=== PATIENT | male | born 1975 | race Caucasian/White ===

== ENCOUNTER 2020-02-12 09:28 | Inpatient (IN) | payer OTHER, SELFPAY ==
[2020-02-12] VITALS (12 sets, daily range): BP systolic 109–132; BP diastolic 60–85; PULSE 115–140; RESP 16–37; TEMP 36.8–39.6; O2SAT 90–99; BMI 48.4
--- NOTE | ~2020-02-12 | XR_ITS ---
EXAMINATION: XR chest 1V portable INDICATION: History of congestive heart failure TECHNIQUE: Portable AP chest at 1510 hours COMPARISON: 11/09/2012 FINDINGS: The lungs are free of acute opacities. There is no pleural effusion or pneumothorax. The he art size is upper limits of normal for technique. IMPRESSION: 1. No acute cardiopulmonary abnormality. Reviewed, dictated and finalized at location A.
--- NOTE | ~2020-02-12 | XR_ITS ---
EXAMINATION: XR chest port-a-cath/central DATE: 02/14/2020 04:17 INDICATION: Central line placement. TECHNIQUE: A single frontal view of the chest was obtained. COMPARISON: Chest single view 02/12/2020, chest CT 03/17/2018 FINDINGS: There is mild atelectasis in left lower lung zone. No pleural effusion or pneumothorax. Car diomegaly is noted. Again seen is mediastinal lipomatosis. A right internal jugular central venous ca theter is seen with tip in the superior vena cava. IMPRESSION: 1. Central line tip in superior vena cava. 2. Mild atelectasis in left lower lung zone. 3. Cardiomegaly. Reviewed, dictated and finalized at location A.
--- NOTE | ~2020-02-12 | US_ITS ---
EXAMINATION: US renal BI DATE: 02/14/2020 09:04 INDICATION: Acute kidney injury. TECHNIQUE: Multiple ultrasound grayscale images of the kidneys were obtained. COMPARISON: CT abdomen and pelvis 08/16/2016 FINDINGS: The right kidney measures 14.3 x 6.2 x 6.2 cm. The left kidney measures 14.4 x 6.4 x 5.7 cm. The kidn eys demonstrate normal parenchymal echogenicity. There is no hydronephrosis. The bladder is decompres sed by a Delatorre catheter. Diffuse hepatic steatosis is noted. IMPRESSION: 1. Normal kidneys. No hydronephrosis. Reviewed, dictated and finalized at location A.
--- NOTE | ~2020-02-12 | US_ITS ---
EXAMINATION: US scrotum doppler DATE: 02/12/2020 10:29 INDICATION: Swelling and tenderness of the left scrotum TECHNIQUE: Testicular sonogram utilizing grayscale and Doppler COMPARISON: None. FINDINGS: The right testis measures 2.9 x 3.0 x 4.2 cm. The left testis measures 3.6 x 3.0 x 3.0 cm. There is a moderate to large sized complex left hydrocele with septation and echogenic material. Ther e is also swelling of the surrounding scrotum. There is normal vascular flow to both testes. The righ t epididymis is normal with normal vascular flow. The left epididymis is enlarged. There is no varico jeromy or hydrocele. IMPRESSION: 1. Moderate to large sized complex left hydrocele with septation and echogenic material and scrotal e sandra. Urologic evaluation is recommended. Reviewed, dictated and finalized at location A. IMPRESSION: 1. Moderate to large sized complex left hydrocele with septation and echogenic material and scrotal edema. Urologic evaluation is recommended.
--- NOTE | ~2020-02-12 | CT_ITS ---
EXAMINATION: CT abd pelvis lumbar wo con DATE: 02/14/2020 11:21 INDICATION: Scrotal cellulitis. TECHNIQUE: Computed tomography (CT) of the abdomen and pelvis and lumbar spine was performed without intravenous contrast. Automated exposure control and iterative reconstruction technique were employed . The dose-length product was 2407.53 mGy-cm. COMPARISON: CT abdomen and pelvis 08/16/2016 FINDINGS: CT ABDOMEN AND PELVIS: The visualized portions of the lung bases demonstrate mild atelectasis. There are trace pleural effus ions. The heart size is normal. There are coronary artery calcifications. No pericardial effusion. Th ere is bilateral gynecomastia. There is diffuse hepatic steatosis. The gallbladder, spleen, pancreas, adrenal glands, and kidneys are normal. There is no urolithiasis. The bladder is decompressed by a F oley catheter. There is no urolithiasis. There are no dilated loops of bowel. There is a diverticulum in the ascending colon. The appendix is normal. There are no pathologically enlarged lymph nodes. Th ere is no free intraperitoneal fluid. There is extensive edema in the scrotum and perineum. No soft t issue gas. CT LUMBAR SPINE: Bone alignment is normal. There is mild chronic anterior wedging of T11 and T12 vertebral bodies. Int ervertebral disc heights are normal. The following disc levels are specifically discussed: L1-L2: The disc does not extend beyond the endplate margin. There is mild bilateral facet joint osteo arthritis. There is no neural foraminal stenosis. There is no central canal stenosis. L2-L3: The disc does not extend beyond the endplate margin. There is mild right and moderate left fac et joint osteoarthritis. There is no neural foraminal stenosis. There is no central canal stenosis. L3-L4: The disc does not extend beyond the endplate margin. There is mild right and moderate left fac et joint osteoarthritis. There is no neural foraminal stenosis. There is no central canal stenosis. L4-L5: The disc is bulging. There is moderate bilateral facet joint osteoarthritis. There is mild katerin ateral neural foraminal stenosis. There is mild central canal stenosis. L5-S1: The disc is bulging. There is severe right and moderate left facet joint osteoarthritis. There is mild right and moderate left neural foraminal stenosis. There is mild central canal stenosis. IMPRESSION: 1. Extensive edema of the scrotum and perineum, consistent with cellulitis. No abscess. 2. Mild lumbar spondylosis. Reviewed, dictated and finalized at location A.
--- NOTE | 2020-02-12 09:55 | ED.GENADULT ---
HPI - General Adult General Chief complaint: Skin/Abscess/Foreign Body Stated complaint: BOIL IN GROIN Time Seen by Provider: 02/12/20 09:34 History of Present Illness HPI narrative: Patient presents with his for sore swollen scrotum. Started 3 days ago with a boil on the left side of his upper scrotum. He has had chills no fever. He has had nausea but no vomiting. The pain is 10 out of 10, worse with any movement. He has never had anything like this before. He is not at risk for sexually transmitted disease. His previous surgery includes left ulnar revision. Does not smoke drink or do drugs. 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 Onset (ago): day(s) Location: genitals Radiation: non-radiation Severity: severe Severity scale (1-10): >10 Relieving factors: none Exacerbating factors: movement Associated symptoms: other (Chills and nausea) Treatments prior to arrival: NSAID Related Data Home Medications Medication Instructions Recorded Confirmed carvedilol 12.5 mg PO BID 02/12/20 02/12/20 furosemide 20 mg PO DAILY 02/12/20 02/12/20 lisinopril 10 mg PO DAILY 02/12/20 02/12/20 Allergies Allergy/AdvReac Type Severity Reaction Status Date / Time No Known Allergies Allergy Verified 02/12/20 15:06 Review of Systems Review of Systems: Narrative: CONSTITUTIONAL: Denies fever, but he has had chills. EYES: Denies visual changes, redness, or discharge. ENT: Denies rhinorrhea, congestion, sore throat, or otalgia. CARDIOVASCULAR: Denies chest pain, palpitations, or edema. RESPIRATORY: Denies cough or dyspnea. GASTROINTESTINAL: Denies abdominal pain, nausea, vomiting, or diarrhea. GENITOURINARY: Denies dysuria or hematuria. SKIN: Denies rash or itching. MUSCULOSKELETAL: Denies back pain, joint pain, or myalgia. NEUROLOGIC: Denies headache, numbness, or weakness. PSYCHIATRIC: Denies anxiety or depression. [facility] Past Medical History Medical History (Updated 02/12/20 @ 15:40 by Luanne Young NP) Cellulitis of scrotum Hypertension Right foot injury S/P ORIF (open reduction internal fixation) fracture Right foot Surgical History Surgical History (Updated 02/12/20 @ 15:36 by Luanne Young NP) History of decompression of ulnar nerve History of orthopedic surgery pin to right foot History of tonsillectomy Family History Family History Father Acute myocardial infarction Diabetes mellitus Hypertension Colon cancer Mother Chronic obstructive pulmonary disease Social History Social History (Updated 02/12/20 @ 15:37 by Luanne Young NP) Social History: Patient lives with his Asiya. She is a durable power state attorney for healthcare. The patient desires to be a full code. The patient stated that he never smoked. Does not use any marijuana or illicit drugs. 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 He has 3 children. Smoking status: Never smoker Second hand tobacco smoke exposure: No Alcohol intake: never Substance use: never Living arrangements: with family Occupation/Education: occupation Gender identity (if verbalized by the patient): Male Spiritual care concerns: No Exam Narrative: Exam Narrative: GENERAL: Well-appearing, well-nourished, very uncomfortable. Overweight HEAD: Normocephalic, atraumatic. EYES: PERRLA and EOMI. ENT: Nares clear, no rhinorrhea or epistaxis. Mucous membranes moist. NECK: Supple. CHEST: Clear to auscultation. No respiratory distress. HEART: Regular rate and rhythm. No murmur heard. Normal peripheral pulses. ABDOMEN: Soft, nontender, nondistended, normal active bowel sounds. EXTREMITIES: Normal range of motion. No edema. SKIN: Warm, dry, no rash. NEURO: No focal deficits. Alert and oriented x3. PSYCH: Normal mood and affect. : Scrotum: scrotal swelling Other: The entire scrotum is massively swollen and red and tender. There is no area of drainage. Course Reevaluation(s) R
--- NOTE | 2020-02-12 10:00 | PC.NURSE ---
Pt taken to ultrasound at this time
--- NOTE | 2020-02-12 10:17 | PC.NURSE ---
unable to draw labs due to pt taken to us.
[2020-02-12] MEDS: MORPHINE SULFATE 4 MG/ML INJ IV PUSH (10:37)
[2020-02-12] MEDS: ONDANSETRON INJ 4 MG/2 ML VIAL IV PUSH (10:37)
[2020-02-12] MEDS: SODIUM CHLORIDE 0.9% IV 1,000 ML 999 ML IV CONT ×2 (10:37→12:21)
[2020-02-12 10:49] LABS: Basophils Absolute Auto 0.1 K/mm3 (0.0-0.1); Basophils Percent Auto 0.6 % (0.2-1.2); Eosinophils Absolute Auto 0.1 K/mm3 (0-0.3); Eosinophils Percent Auto 0.4 % (0-4.4); Hematocrit 44.1 % (42.0-52.0); Hemoglobin 15.4 g/dL (14.0-18.0); Immature Granulocyte Percent A 1.3 % (0-0.5); Lymphocytes Absolute Auto 1.25 K/mm3 (0.9-3.2); Mean Corpuscular HGB Conc 34.9 g/dl (32-36); Mean Corpuscular Hemoglobin 33.3 pg (26-34); Mean Corpuscular Volume 95.5 fl (80-100); Mean Platelet Volume 11.6 fl (7.4-10.4); Monocytes Absolute Auto 1.3 K/mm3 (0.1-0.6); Neutrophils Absolute Auto 12.7 K/mm3 (1.3-6.7); Neutrophils Percent Auto 81.7 % (45.5-73.1); Platelet Count Result 172 k/mm3 (150-375); Red Blood Count 4.62 M/mm3 (4.6-6.20); Red Cell Distribution Width 14.9 % (11.5-14.5); White Blood Count 15.5 K/mm3 (4.5-10.0)
[2020-02-12 11:02] LABS: Lactic Acid 1.4 mmol/L (0.7-2.1)
[2020-02-12 11:17] LABS: Alanine Aminotransferase 26 U/L (4-50); Albumin Level 3.6 g/dL (3.5-5.1); Alkaline Phosphatase 124 U/L (38-126); Aspartate Amino Transferase 26 U/L (17-59); Bilirubin,Total 0.9 mg/dL (0.2-1.3); Blood Urea Nitrogen 12 mg/dL (9-20); Calcium 8.4 mg/dL (8.4-10.2); Carbon Dioxide 9 mmol/L (22-30); Chloride 100 mmol/L (98-107); Estimated CRCL calculation 121 ml/min; Estimated Glomerular Filt Rate > 60; Glucose 318 mg/dL (75-110); Potassium 5.1 mmol/L (3.4-5.0); Sodium 131 mmol/L (137-145)
[2020-02-12 11:18] LABS: Add Urine Microscopic? YES; Appearance Urine Clear (Clear); Bilirubin Urine Negative (Negative); Blood Urine 1+ (Negative); Color Urine Straw (Yellow); Glucose Urine UA 3+ mg/dL (Negative); Ketones Urine 2+ mg/dL (Negative); Leukocyte Esterase Ur Negative LEU/UL (Negative); Mucus Urine Rare /lpf; Nitrate Urine Negative (Negative); Protein Urine 2+ mg/dL (Negative); Specific Grav Ur 1.029 (1.001-1.035); Squamous Epithelial Cell Urine Rare /hpf (Few); Urobilinogen Urine Negative mg/dL (<2.0); WBC Urine 0-3 /hpf
[2020-02-12] MEDS: INSULIN HUMAN REGULAR (*BKC) 100 UNITS/ML 10 UNITS SUB-Q (12:21)
[2020-02-12] MEDS: HYDROMORPHONE HCL 1 MG/ML INJ IV PUSH ×4 (12:27→22:45)
[2020-02-12 12:39] LABS: Alveolar/Arterial O2 Gradient 42.8 mmHg; Base Excess ABG -15.1 mEq/l (+/-2.0); Fractional Inspired Oxygen 21 %; HCO3 ABG 11.2 mEq/l (22.0-26.0); Oxygen Content ABG 17.9 %vol (16.0-22.0); Oxygen Saturation ABG 91.8 % (95.0-100.0); Oxyhemoglobin 92.3 % THb (90.0-100.0); PCO2 ABG 28.4 mmHg (35.0-45.0); PO2 ABG 72.9 mmHg (80.0-100.0); PO2 FiO2 Ratio Arterial Blood 3.47 %; Total Hemoglobin 13.8 g/dL (12.0-18.0)
[2020-02-12 12:41] LABS: Device ROOM AIR; Modified Allen's Test Pass; Site Drawn LEFT RADIAL; pH ABG 7.214 (7.350-7.450)
[2020-02-12 12:54] LABS: Glucose Point of Care 274 (65-105)
[2020-02-12] MEDS: INSULIN HUMAN REGULAR (*BKC) 100 UNITS/ML 14 UNITS IV PUSH (12:54)
[2020-02-12 13:25] LABS: Glucose Point of Care 268 (65-105)
[2020-02-12 13:25] LABS: Glucose Point of Care 303 (65-105)
[2020-02-12] MEDS: INSULIN HUMAN REGULAR (*BKC) 100 UNITS in SODIUM CHLORIDE 0.9% IV 99 ML IV CONT (13:33)
[2020-02-12] MEDS: SODIUM CHLORIDE 0.9% IV 1,000 ML 500 ML IV CONT (13:42)
[2020-02-12 13:44] LABS: Lactic Acid 1.2 mmol/L (0.7-2.1); Magnesium 1.9 mg/dL (1.6-2.3); Phosphorus 3.1 mg/dL (2.5-4.5)
--- NOTE | 2020-02-12 13:50 | WPDURCON ---
Assessment and Plan Assessment and plan (1) Obesity: Qualifiers: Obesity classification: unspecified obesity classification Obesity type: due to excess calories Serious obesity comorbidity presence: with serious comorbidity Qualified Code(s): E66.09 - Other obesity due to excess calories Code(s): E66.9 - Obesity, unspecified Status: Acute (2) Cellulitis of scrotum: Code(s): N49.2 - Inflammatory disorders of scrotum Status: Acute Assessment and Plan: Scrotal cellulitis without abscess formation. Agree with Zosyn an admission for ongoing IV antibiotics and management of newly diagnosed diabetes. No evidence (by exam or scrotal ultrasonography) of scrotal abscess requiring drainage. Urology Consult Note HPI Date Seen: 02/12/20 Requesting Physician: Forest Garcia MD Primary Care Provider: CLOD PULLER PHYSICIAN Consult Narrative Narrative: Jamin Field is a 44 year old male pleasant young man without prior urological history until about 3-4 days ago. At that point he began to notice some mildly painful swelling of the scrotum, more pronounced on the left than right. This occurred without identifiable precipitating injury, bite or other trauma. Progressed rapidly over the past 24 hours prompting presentation to the ER. He has had no fevers chills or purulent discharge from his genitalia. He also denies irritable voiding symptoms. He has no prior significant urological history. While in the ER he was diagnosed with diabetes. A scrotal ultrasound shows complex hydrocele with scrotal wall thickening and no predominant fluid collection consistent with scrotal abscess. Review of Systems Constitutional: Constitutional: Denies chills, Denies fatigue, Denies fever(s) and Denies headache(s) Eyes: Eyes: Denies blurry vision ENT: Denies vertigo, Denies dizziness, Denies headache(s) and Denies sore throat Cardiovascular: Cardiovascular: Denies chest pain, Denies lightheadedness, Denies palpitations and Denies dyspnea Respiratory: Respiratory: Denies dyspnea Gastrointestinal: Gastrointestinal: Denies diarrhea, Denies nausea and Denies vomiting Genitourinary: Genitourinary: Denies hematuria, Denies dysuria and Reports other (painful scrotal swelling) Integumentary/Breasts: Skin/Breast: Denies pruritus, Denies lesions and Denies rash Neurologic: Denies confusion, Denies vertigo, Denies dizziness, Denies syncope and Denies headache(s) Psychiatric: Psychiatric: Denies anxiety, Denies change in appetite and Denies confusion Endocrine: Endocrine: Denies palpitations PMFSH Surgical History Surgical History History of decompression of ulnar nerve Social History Social History Smoking status: Never smoker Alcohol intake: never Gender identity (if verbalized by the patient): Male Meds Home Medications and Allergies Home Medications Medication Instructions Recorded Confirmed Type carvedilol 12.5 mg PO 02/12/20 History furosemide 20 mg PO 02/12/20 History lisinopril 10 mg PO 02/12/20 History Allergies Allergy/AdvReac Type Severity Reaction Status Date / Time No Known Allergies Allergy Verified 02/12/20 09:44 Vital Signs Vital Signs - 24 hr 02/12/20 09:39 02/12/20 11:18 02/12/20 12:31 Temperature 98.2 F Pulse Rate 115 H 118 H 123 H Respiratory Rate 16 18 18 Blood Pressure 132/85 114/83 113/63 Pulse Oximetry 99 98 99 02/12/20 13:30 Temperature Pulse Rate 126 H Respiratory Rate 16 Blood Pressure 126/65 Pulse Oximetry 98 Exam Const: General: no acute distress, well developed and anxious; No comfortable or confusion Nutritional Appearance: well nourished and obese Orientation/consciousness: patient oriented x3 and No confusion HENMT: Head: normocephalic and atraumatic Ears: external ears normal Face and sinus: normal
[2020-02-12 14:11] LABS: Beta-Hydroxybutyrate/Acetoacetate 7.09 mmol/L (0.02-0.27)
--- NOTE | 2020-02-12 14:11 | WPDCNINT ---
Assessment and Plan Assessment and plan (1) Cellulitis of scrotum: Code(s): N49.2 - Inflammatory disorders of scrotum Status: Acute Assessment and Plan: patient was presented with scrotal swelling which has been painful, started on 02/09/2020 and gradually worsened extend that the pain is 10/10 in intensity. - scrotal ultrasound done in the ER on 02/12/2020 showed moderate to large size complex left hydrocele with septation and echogenic material and scrotal edema, no abscess. - Appreciate urology evaluation recommendations, diagnosed it as scrotal cellulitis - continue Zosyn (2) DKA (diabetic ketoacidoses): Qualifiers: Diabetes mellitus complication detail: without coma Diabetes mellitus type: type 1 Qualified Code(s): E10.10 - Type 1 diabetes mellitus with ketoacidosis without coma Code(s): E11.10 - Type 2 diabetes mellitus with ketoacidosis without coma Status: Acute Assessment and Plan: patient with no known history of diabetes, was found to be in DKA in the ER with elevated blood sugars, elevated anion gap, metabolic acidosis - lactic acid was normal - patient was given 2 L of IV fluids, and started on insulin infusion per DKA protocol - continue serial BMP - will transition patient to long-acting insulin sliding-scale insulin once anion gap closes. - Currently NPO - check hemoglobin A1c (3) Obesity: Qualifiers: Obesity classification: unspecified obesity classification Obesity type: due to excess calories Serious obesity comorbidity presence: with serious comorbidity Qualified Code(s): E66.09 - Other obesity due to excess calories Code(s): E66.9 - Obesity, unspecified Status: Acute Assessment and Plan: morbid obesity, will have technology infusion specialist evaluate the patient (4) CHF (congestive heart failure): Code(s): I50.9 - Heart failure, unspecified Status: Acute Assessment and Plan: patient with known CHF, on Coreg, lisinopril, Lasix at home - will check echocardiogram (5) DVT prophylaxis: Code(s): Z29.9 - Encounter for prophylactic measures, unspecified Status: Acute Assessment and Plan: SCDs for now (6) Dietary counseling and surveillance: Code(s): Z71.3 - Dietary counseling and surveillance Status: Acute Assessment and Plan: NPO for now except ice chips Additional Plan discussed with patient updated with his condition and plan of care. He is aware he is going to be getting pain medications, antibiotics insulin infusion for now code status: Full code Critical care time spent: 41 with Due to a high probability of clinically significant, life threatening deterioration, the patient required my highest level of preparedness to intervene emergently and I personally spent this critical care time directly and personally managing the patient. This critical care time included obtaining a history; examining the patient; pulse oximetry; ordering and review of studies; arranging urgent treatment with development of a management plan; evaluation of patient's response to treatment; frequent reassessment; and discussions with other providers. It was exclusive of separately billable procedures and treating other patients and teaching time. Please see Assessment and Plan section and the rest of the note for further information on patient assessment and treatment Bowling Alley Operator Consult Note Consult date: 02/12/20 Time Seen: 14:08 Reason for consult: DKA, Scrotal cellulitis without abscess HPI: Jamin Field is a 44 year old male With past medical history of congestive heart failure with which she was diagnosed 2 years ago presented to the ED with complains of scrotal swelling and started 02/09/2020 been gradually worsened to a level that the pain is 10/10 in intensity. The swelling is more pronounced on the left and right side of the scrotum. Denied any fevers or chills or purulent disc
[2020-02-12 14:45] LABS: Glucose Point of Care 250 (65-105)
--- NOTE | 2020-02-12 14:48 | PM.IMHP ---
H&P: HPI History of Present Illness Chief complaint: DKA/scrotal cellulitis Narrative: Jamin Field is a 44 year old male Who has no known history of being diabetic. The patient stated that he has not felt very well for last 3 days. He did noticed a boil on his left scrotum that was not. He was going to pop it but his encouraged him not to mess with it. I am he has had some chills but did have any fever. He had some nausea but no vomiting. He had severe discomfort. The patient stated that he tried to take Tylenol around the clock and that was not helping. He tried to soak in Epson salt today and that only made it worse. Patient stated that his scrotum was so enlarged and he could barely walk. It was very painful. He has not had anything like this before he has had no injury to his scrotum nor has he at risk for any sexually transmitted diseases. He has no drainage from his scrotum. He has a history of hypertension but otherwise has no medical problems. IV insulin and started on insulin drip per DKA protocol. Initially the patient was given Zosyn in the emergency room. He was given a lot of for discomfort. Urology has seen the patient is agreeable with this Zosyn. Scrotum ultrasound was read as moderate to large size complex left hydrocele with septation an echogenic material and scrotal edema. His pH is noted to be 7.214. CO2 was 28.4 patient has metabolic acidosis. His sodium was 131 and potassium 5.1. Blood glucose was 318 and then repeat was 250. Anion gap is 22. Patient is being admitted to ICU for DKA and scrotal cellulitis. Date of service 02/12/2020 Review of Systems Review of Systems: All systems reviewed & are unremarkable except as noted in HPI and below Constitutional: Constitutional: Reports as per HPI and Reports no additional constitutional complaints Eyes: Eyes: Reports as per HPI and Reports no additional eye complaints ENT: Reports system reviewed and no additional complaints, except as documented and Reports Normal hearing present Cardiovascular: Cardiovascular: Reports no additional cardiovascular complaints Respiratory: Respiratory: Reports no additional respiratory complaints and Reports no additional respiratory complaints Gastrointestinal: Gastrointestinal: Reports as per HPI and Reports no additional gastrointestinal complaints Musculoskeletal: Musculoskeletal: Reports no additional musculoskeletal complaints Integumentary/Breasts: Skin/Breast: Reports system reviewed and no additional complaints, except as docu and Reports as per HPI Neurologic: Reports system reviewed and no additional complaints, except as documented, Reports as per HPI and Reports Normal hearing present Psychiatric: Psychiatric: Reports no additional psychiatric complaints and Reports as per HPI Endocrine: Endocrine: Reports no additional endocrine complaints Hematologic/Lymphatic: Hematologic/Lymphatic: Reports no additional hematologic/lymphatic complaints Allergic/Immunologic: Allergic/Immunologic: Reports no additional allergic/immunologic complaints PMFSH Past Medical History Medical History (Updated 02/12/20 @ 15:40 by Luanne Young NP) Cellulitis of scrotum Hypertension Right foot injury S/P ORIF (open reduction internal fixation) fracture Right foot Surgical History Surgical History (Updated 02/12/20 @ 15:36 by Luanne Young NP) History of decompression of ulnar nerve History of orthopedic surgery pin to right foot History of tonsillectomy Family History Family History Father Acute myocardial infarction Diabetes mellitus Hypertension Colon cancer Mother Chronic obstructive pulmonary disease Social History Social History (Updated 02/12/20 @ 15:37 by Luanne Young NP) Social History: Patient lives with his Asiya. She is a durable power bankruptcy attorney for healthcare. The patient desires to be a full code. The patient
[2020-02-12 15:07] LABS: Glucose Point of Care 216 (65-105)
[2020-02-12] MEDS: KCL 20 MEQ/D5/0.45% SOD CHL 1,000 ML 150 ML IV CONT ×2 (15:38→22:10)
[2020-02-12] MEDS: SODIUM CHLORIDE 0.9% IV 1,000 ML 150 ML IV CONT (15:38)
[2020-02-12 16:11] LABS: Glucose Point of Care 188 (65-105)
[2020-02-12 17:11] LABS: Glucose Point of Care 178 (65-105)
[2020-02-12 17:26] LABS: Estimated CRCL calculation 121 ml/min; Estimated Glomerular Filt Rate > 60
[2020-02-12 17:31] LABS: Blood Urea Nitrogen 15 mg/dL (8-26); Chloride 107 mmol/L (98-109); Glucose 208 mg/dL (70-105); Potassium 4.7 mmol/L (3.5-4.9); Sodium 134 mmol/L (138-146)
[2020-02-12] MEDS: ACETAMINOPHEN 325 MG TABLET 650 MG PO (17:57)
[2020-02-12 18:02] LABS: Glucose Point of Care 189 (65-105)
[2020-02-12 18:44] LABS: Alveolar/Arterial O2 Gradient 49.3 mmHg; Base Excess ABG -12.8 mEq/l (+/-2.0); Fractional Inspired Oxygen 21 %; HCO3 ABG 12.5 mEq/l (22.0-26.0); Oxygen Content ABG 18.4 %vol (16.0-22.0); Oxygen Saturation ABG 91.2 % (95.0-100.0); Oxyhemoglobin 92.8 % THb (90.0-100.0); PCO2 ABG 27.9 mmHg (35.0-45.0); PO2 FiO2 Ratio Arterial Blood 3.19 %; Total Hemoglobin 14.1 g/dL (12.0-18.0)
[2020-02-12 18:45] LABS: Device ROOM AIR; Modified Allen's Test Pass; Site Drawn RIGHT RADIAL
[2020-02-12 19:00] LABS: Glucose Point of Care 200 (65-105)
[2020-02-12] MEDS: ACETAMINOPHEN 500 MG TABLET PO (19:57)
[2020-02-12] MEDS: VANCOMYCIN HCL 2,000 MG in SODIUM CHLORIDE 0.9% IV 500 ML 250 MG IVPB (20:45)
[2020-02-12 20:50] LABS: Glucose Point of Care 181 (65-105)
--- NOTE | 2020-02-12 20:54 | PC.NURSE ---
Addendum entered by Alexander Jimenez RN 02/12/20 20:55: Placed on patient at 1945 Original Note: Ice bags placed under armpits.
[2020-02-12] MEDS: LACTATED RINGERS 500 ML 999 ML IV CONT (22:11)
[2020-02-12 22:20] LABS: Glucose Point of Care 179 (65-105)
[2020-02-12 23:54] LABS: Glucose Point of Care 179 (65-105)
[2020-02-13] VITALS (21 sets, daily range): BP systolic 96–121; BP diastolic 56–72; PULSE 12–132; RESP 16–32; TEMP 36.8–39.3; O2SAT 94–100; BMI 46.7
--- NOTE | 2020-02-13 | ECHO_ITS ---
Patient Info Name: Jamin Field Age: 44 years : 1975 Gender: Male Ht: 66 in Wt: 299 lbs BSA: 2.59 m2 HR: 108 bpm BP: 126 / 65 mmHg Heart Rhythm: Sinus Rhythm, Tachycardia Technical Quality: Good Exam Date: 02/13/2020 9:47 AM Exam Location: [facility] Pulmonary Exam Room: ICU 08 Patient Status: Inpatient Admit Date: 02/12/2020 Staff Ordering Physician: Kami Rothman MD Raisin Washer: Ada Ceja RDCS Attending Provider: Caleb Garcia MD Referring Physician: Lorna NASCIMENTO; Exam Type: CA echo doppler color flow Study Info Indications - CHF Complete two-dimensional, color flow and Doppler transthoracic echocardiogram is performed. Summary 1. Left ventricular chamber size, wall thickness and systolic function are normal with no regional wall motion abnormalities with an estimated ejection fraction of 65-70%. However, the global longitudinal strain was -14%, moderately reduced, suggesting early systolic dysfunction. Grade 1 diastolic dysfunction is present. 2. The right ventricle is not well seen but is probably mildly enlarged. 3. Left atrial chamber dimension is mildly enlarged. 4. There is mild tricuspid valve regurgitation. 5. Mild pulmonary hypertension, estimated pulmonary arterial systolic pressure is 41 mmHg. 6. Sinus tachycardia. Left Ventricle Left ventricular chamber dimension is normal. Left ventricular systolic function is normal, estimated at 65-70%. There is no increased left ventricular wall thickness. Left ventricular septal wall motion is normal. The left ventricular diastolic function is grade I diastolic dysfunction. Global longitudinal strain is moderately elevated at 14 %. Left ventricular chamber size, wall thickness and systolic function are normal with no regional wall motion abnormalities with an estimated ejection fraction of 65-70%. However, the global longitudinal strain was -14%, moderately reduced, suggesting early systolic dysfunction. Grade 1 diastolic dysfunction is present. Right Ventricle The right ventricle is not well seen but is probably mildly enlarged. Right ventricular systolic function is normal. Left Atria Left atrial chamber dimension is mildly enlarged. Right Atria Right atrial chamber dimension is normal. Aortic Valve The aortic valve is trileaflet. There is no aortic valve sclerosis. There is no aortic valve stenosis. There is no aortic valve regurgitation. Pulmonic Valve The pulmonic valve is normal. There is no pulmonic valve stenosis. There is no pulmonic regurgitation. Mitral Valve The mitral valve has normal leaflets. There is no mitral valve stenosis. There is trace mitral valve regurgitation. Tricuspid Valve The tricuspid valve leaflets are normal. There is no significant tricuspid valve stenosis. There is mild tricuspid valve regurgitation. Mild pulmonary hypertension, estimated pulmonary arterial systolic pressure is 41 mmHg. Pericardium/Pleural The pericardium appears normal. There is no pericardial effusion. Inferior Vena Cava Normal inferior vena cava with >50% collapse upon inspiration consistent with Empty right atrial pressure, 10 mmHg. Aorta The aortic root size at the sinus of Valsalva is normal. The prox ascending aorta size is normal. Left Ventricular Outflow Tract Name Value Normal
[2020-02-13] MEDS: ACETAMINOPHEN 500 MG TABLET 1000 MG PO ×3 (00:54→21:04)
[2020-02-13 00:58] LABS: Glucose Point of Care 187 (65-105)
[2020-02-13] MEDS: HYDROMORPHONE HCL 1 MG/ML INJ IV PUSH ×6 (01:52→21:03)
[2020-02-13] MEDS: INSULIN HUMAN REGULAR (*BKC) 100 UNITS in SODIUM CHLORIDE 0.9% IV 99 ML 10.1 UNITS IV CONT (01:52)
[2020-02-13 02:01] LABS: Glucose Point of Care 187 (65-105)
[2020-02-13 03:05] LABS: Glucose Point of Care 182 (65-105)
[2020-02-13 04:06] LABS: Glucose Point of Care 157 (65-105)
[2020-02-13 04:47] LABS: Basophils Percent Auto 0.4 % (0.2-1.2); Eosinophils Percent Auto 0.4 % (0-4.4); Hematocrit 35.6 % (42.0-52.0); Hemoglobin 11.9 g/dL (14.0-18.0); Immature Granulocyte Absolute 0.18 K/mm3 (0.00-0.031); Immature Granulocyte Percent A 1.6 % (0-0.5); Lymphocytes Absolute Auto 0.91 K/mm3 (0.9-3.2); Lymphocytes Percent Auto 8.2 % (18.3-44.2); Mean Corpuscular HGB Conc 33.4 g/dl (32-36); Mean Corpuscular Volume 92.7 fl (80-100); Mean Platelet Volume 11.6 fl (7.4-10.4); Monocytes Absolute Auto 0.9 K/mm3 (0.1-0.6); Neutrophils Absolute Auto 9.1 K/mm3 (1.3-6.7); Neutrophils Percent Auto 81.4 % (45.5-73.1); Platelet Count Result 152 k/mm3 (150-375); Red Blood Count 3.84 M/mm3 (4.6-6.20); Red Cell Distribution Width 14.9 % (11.5-14.5); White Blood Count 11.1 K/mm3 (4.5-10.0)
[2020-02-13] MEDS: KCL 20 MEQ/D5/0.45% SOD CHL 1,000 ML 150 ML IV CONT ×2 (05:07→11:52)
[2020-02-13 05:22] LABS: Glucose Point of Care 168 (65-105)
[2020-02-13 06:31] LABS: Alanine Aminotransferase 23 U/L (4-50); Albumin Level 2.9 g/dL (3.5-5.1); Alkaline Phosphatase 90 U/L (38-126); Aspartate Amino Transferase 24 U/L (17-59); Bilirubin,Total 0.6 mg/dL (0.2-1.3); Blood Urea Nitrogen 14 mg/dL (9-20); Calcium 7.5 mg/dL (8.4-10.2); Carbon Dioxide 14 mmol/L (22-30); Chloride 107 mmol/L (98-107); Estimated CRCL calculation 66 ml/min; Estimated Glomerular Filt Rate 44; Magnesium 1.5 mg/dL (1.6-2.3); Potassium 4.3 mmol/L (3.4-5.0); Sodium 131 mmol/L (137-145)
[2020-02-13 06:42] LABS: Glucose Point of Care 173 (65-105)
[2020-02-13 06:54] LABS: Glucose 171 mg/dL (75-110)
[2020-02-13 07:15] LABS: CRP 33.4 mg/dL (<1.0)
[2020-02-13 07:54] LABS: Glucose Point of Care 157 (65-105)
[2020-02-13] MEDS: MAGNESIUM SULF 2 GM/WATER 50ML 2 GM/50 ML BAG IVPB (08:08)
--- NOTE | 2020-02-13 08:48 | PCDIET ---
MD consult received. Patient currently NPO. Will provide diet education once DKA resolved and diet advanced.
[2020-02-13 08:51] LABS: Glucose Point of Care 148 (65-105)
[2020-02-13 09:49] LABS: Glucose Point of Care 164 (65-105)
[2020-02-13 10:29] LABS: Blood Urea Nitrogen 16 mg/dL (9-20); Calcium 7.6 mg/dL (8.4-10.2); Carbon Dioxide 14 mmol/L (22-30); Chloride 107 mmol/L (98-107); Estimated CRCL calculation 53 ml/min; Estimated Glomerular Filt Rate 34; Glucose 176 mg/dL (75-110); Potassium 4.7 mmol/L (3.4-5.0); Sodium 128 mmol/L (137-145)
[2020-02-13 10:46] LABS: Glucose Point of Care 154 (65-105)
--- NOTE | 2020-02-13 11:43 | PM.IMPN ---
Progress Note: A&P Assessment and Plan (1) Cellulitis of scrotum: Code(s): N49.2 - Inflammatory disorders of scrotum Status: Acute Assessment and Plan: Appreciate urology evaluation Continue vancomycin and Primaxin day 1 (2) DKA (diabetic ketoacidoses): Qualifiers: Diabetes mellitus complication detail: without coma Diabetes mellitus type: type 1 Qualified Code(s): E10.10 - Type 1 diabetes mellitus with ketoacidosis without coma Code(s): E11.10 - Type 2 diabetes mellitus with ketoacidosis without coma Status: Acute Assessment and Plan: 02/12 anion gap has closed and acidosis is resolving (3) Hypertension: Code(s): I10 - Essential (primary) hypertension Status: Chronic Assessment and Plan: Continue carvedilol and monitor pressure (4) CHF (congestive heart failure): Code(s): I50.9 - Heart failure, unspecified Status: Acute Assessment and Plan: No signs of volume overload (5) Obesity: Qualifiers: Obesity classification: unspecified obesity classification Obesity type: due to excess calories Serious obesity comorbidity presence: with serious comorbidity Qualified Code(s): E66.09 - Other obesity due to excess calories Code(s): E66.9 - Obesity, unspecified Status: Acute Assessment and Plan: Dietary counseling Subjective Date/time seen: 02/13/20 11:43 Interval history: Admitted 02/11 with new onset diabetes, DKA, scrotal cellulitis 02/12 complains of [id number] pain and scrotum worse with movement. Tolerating clear liquids. Review of Systems Review of Systems: All systems reviewed & are unremarkable except as noted in HPI and below Exam Narrative: Exam Narrative: SKIN: Erythema and edema of scrotum, penis. Erythema of eschutcheon HEENT: EOMI, PERRL, sclerae nonicteric, pharyngeal mucosa pink and intact NECK: No JVD CHEST: Clear to auscultation. Normal effort. HEART: NL S1/S2, regular, no murmur ABDOMEN: BS+, soft, nontender, no mass, no bruits EXTREMITIES: No cyanosis, edema, or clubbing NEUROLOGIC: CN intact and symmetric to inspection. MUSCULOSKELETAL: Tone and strength symmetric. PSYCH: Alert. Oriented to person, place, and time. Objective Data Vital Signs Vital Signs: Vital Signs - 24 hr 02/12/20 12:31 02/12/20 13:30 02/12/20 14:20 Temperature 100.0 F H Pulse Rate 123 H 126 H 126 H Respiratory Rate 18 16 30 H Blood Pressure 113/63 126/65 132/75 Pulse Oximetry 99 98 98 02/12/20 16:00 02/12/20 17:25 02/12/20 17:57 Temperature 103.3 F H 103.3 F H Pulse Rate 135 H Respiratory Rate 31 H Blood Pressure 126/68 Pulse Oximetry 90 02/12/20 18:00 02/12/20 18:55 02/12/20 20:00 Temperature 103.2 F H Pulse Rate 140 H 136 H Respiratory Rate 37 H 27 H Blood Pressure 124/60 126/67 Pulse Oximetry 93 93 02/12/20 22:00 02/13/20 00:00 02/13/20 00:54 Temperature 102 F H 102 F H Pulse Rate 128 H 12 L Respiratory Rate 25 H 22 H Blood Pressure 109/61 108/59 L Pulse Oximetry 98 97 02/13/20 01:00 02/13/20 02:00 02/13/20 03:16 Temperature 99.9 F H Pulse Rate 123 H 120 H 118 H Respiratory Rate 32 H 20 20 Blood Pressure 110/72 107/60 Pulse Oximetry 95 95 94 02/13/20 04:00 02/13/20 06:00 02/13/20 08:00 Temperature 99.2 F 98.4 F Pulse Rate 117 H 109 H 110 H Respiratory Rate 19 17 18 Blood Pressure 103/57 L 96/57 L 101/70 Pulse Oximetry 96 96 99 02/13/20 10:00 Temperature Pulse Rate 107 H Respiratory Rate 16 Blood Pressure 109/68 Pulse Oximetry 96 Intake/Output Intake/Output: Intake & Output 02/10/20 02/11/20 02/12/20 02/13/20 23:59 23:59 23:59 23:59 Intake Total 4472 1218 Output Total 0 1300 Balance 7212 -82 Meds/Results Medications: Active Medications Generic Name Dose Route Start Last Admin Trade Name Freq PRN Reason Stop Dose Admin Acetaminophen 1,000 mg 02/12/20 19:36 02/13/20 00:54 Gisel
[2020-02-13] MEDS: ENOXAPARIN 40 MG/0.4 ML SYRINGE SUB-Q (11:44)
[2020-02-13] MEDS: INSULIN HUMAN REGULAR (*BKC) 100 UNITS in SODIUM CHLORIDE 0.9% IV 99 ML 9.4 UNITS IV CONT (11:44)
[2020-02-13 11:49] LABS: Glucose Point of Care 179 (65-105)
[2020-02-13 12:44] LABS: Glucose Point of Care 183 (65-105)
--- NOTE | 2020-02-13 12:53 | WPDINTPN ---
Progress Note: A&P Assessment and Plan (1) Cellulitis of scrotum: Code(s): N49.2 - Inflammatory disorders of scrotum Status: Inactive Assessment and Plan: patient was presented with scrotal swelling which has been painful, started on 02/09/2020 and gradually worsened extend that the pain is 10/10 in intensity. - scrotal ultrasound done in the ER on 02/12/2020 showed moderate to large size complex left hydrocele with septation and echogenic material and scrotal edema, no abscess. - Appreciate urology evaluation recommendations, diagnosed it as scrotal cellulitis - continue Zosyn and pain control with Dilaudid (2) DKA (diabetic ketoacidoses): Qualifiers: Diabetes mellitus complication detail: without coma Diabetes mellitus type: type 1 Qualified Code(s): E10.10 - Type 1 diabetes mellitus with ketoacidosis without coma Code(s): E11.10 - Type 2 diabetes mellitus with ketoacidosis without coma Status: Acute Assessment and Plan: patient with no known history of diabetes, was found to be in DKA in the ER with elevated blood sugars, elevated anion gap, metabolic acidosis - lactic acid was normal - patient was adequately fluid-resuscitated - continue serial BMP - will transition patient to long-acting insulin sliding-scale insulin once anion gap closes. - Currently NPO - hemoglobin A1c has been sent out to [facility] (3) Obesity: Qualifiers: Obesity classification: unspecified obesity classification Obesity type: due to excess calories Serious obesity comorbidity presence: with serious comorbidity Qualified Code(s): E66.09 - Other obesity due to excess calories Code(s): E66.9 - Obesity, unspecified Status: Acute Assessment and Plan: morbid obesity, will have service crew supervisor evaluate the patient (4) CHF (congestive heart failure): Code(s): I50.9 - Heart failure, unspecified Status: Acute Assessment and Plan: patient with known CHF, on Coreg, lisinopril, Lasix at home - chest x-ray did not show any acute cardiopulmonary disease - echocardiogram has been done and pending report (5) DVT prophylaxis: Code(s): Z29.9 - Encounter for prophylactic measures, unspecified Status: Acute Assessment and Plan: Lovenox (6) Dietary counseling and surveillance: Code(s): Z71.3 - Dietary counseling and surveillance Status: Acute Assessment and Plan: NPO for now except ice chips Additional Plan discussed with patient updated with his condition and plan of care. He is aware he is going to be getting pain medications, antibiotics insulin infusion for now code status: Full code Critical care time spent: 33 minutes Due to a high probability of clinically significant, life threatening deterioration, the patient required my highest level of preparedness to intervene emergently and I personally spent this critical care time directly and personally managing the patient. This critical care time included obtaining a history; examining the patient; pulse oximetry; ordering and review of studies; arranging urgent treatment with development of a management plan; evaluation of patient's response to treatment; frequent reassessment; and discussions with other providers. It was exclusive of separately billable procedures and treating other patients and teaching time. Please see Assessment and Plan section and the rest of the note for further information on patient assessment and treatment Subjective Date/time seen: 02/13/20 12:53 REASON FOR CONSULT: DKA, scrotal cellulitis without abscess, scrotal edema and pain 03/01/2020: Patient seen and examined this morning. Is awake, alert, complains of scrotal pain 8/10 in intensity. According the bedside RN when he receives his Dilaudid patient does go to sleep and is almost pain free. Patient is hemodynamically stable, remains on antibiotics, febrile with T-max
[2020-02-13 13:46] LABS: Glucose Point of Care 179 (65-105)
[2020-02-13 14:06] LABS: Blood Urea Nitrogen 16 mg/dL (9-20); Calcium 7.5 mg/dL (8.4-10.2); Carbon Dioxide 13 mmol/L (22-30); Chloride 107 mmol/L (98-107); Estimated CRCL calculation 48 ml/min; Estimated Glomerular Filt Rate 31; Glucose 188 mg/dL (75-110); Potassium 4.8 mmol/L (3.4-5.0); Sodium 128 mmol/L (137-145)
--- NOTE | 2020-02-13 14:25 | WPDUROPN2 ---
Progress Note: A&P Assessment and Plan (1) Cellulitis of scrotum: Code(s): N49.2 - Inflammatory disorders of scrotum Status: Acute Assessment and Plan: - cellulitis without abscess formation. - continue Vanc/Zosyn - No evidence (by exam or scrotal ultrasonography) of scrotal abscess requiring drainage. - recommend better scrotal elevation (2) DKA (diabetic ketoacidoses): Qualifiers: Diabetes mellitus complication detail: without coma Diabetes mellitus type: type 1 Qualified Code(s): E10.10 - Type 1 diabetes mellitus with ketoacidosis without coma Code(s): E11.10 - Type 2 diabetes mellitus with ketoacidosis without coma Status: Acute (3) Obesity: Qualifiers: Obesity classification: unspecified obesity classification Obesity type: due to excess calories Serious obesity comorbidity presence: with serious comorbidity Qualified Code(s): E66.09 - Other obesity due to excess calories Code(s): E66.9 - Obesity, unspecified Status: Acute Subjective Subjective Date/Time Seen: 02/13/20 14:25 Exam Const: General: no acute distress Eyes: General: appearance normal, both eyes and all related structures : Male General Exam: Yes erythema and Yes tenderness Other: singnificant edema . no crepitus or fluctance Objective Data Vital Signs Vital Signs: Vital Signs - 24 hr 02/12/20 16:00 02/12/20 17:25 02/12/20 17:57 Temperature 39.6 C H 39.6 C H Pulse Rate 135 H Respiratory Rate 31 H Blood Pressure 126/68 Pulse Oximetry 90 02/12/20 18:00 02/12/20 18:55 02/12/20 20:00 Temperature 39.6 C H Pulse Rate 140 H 136 H Respiratory Rate 37 H 27 H Blood Pressure 124/60 126/67 Pulse Oximetry 93 93 02/12/20 22:00 02/13/20 00:00 02/13/20 00:54 Temperature 38.8 C H 38.8 C H Pulse Rate 128 H 12 L Respiratory Rate 25 H 22 H Blood Pressure 109/61 108/59 L Pulse Oximetry 98 97 02/13/20 01:00 02/13/20 02:00 02/13/20 03:16 Temperature 37.7 C H Pulse Rate 123 H 120 H 118 H Respiratory Rate 32 H 20 20 Blood Pressure 110/72 107/60 Pulse Oximetry 95 95 94 02/13/20 04:00 02/13/20 06:00 02/13/20 08:00 Temperature 37.3 C 36.9 C Pulse Rate 117 H 109 H 110 H Respiratory Rate 19 17 18 Blood Pressure 103/57 L 96/57 L 101/70 Pulse Oximetry 96 96 99 02/13/20 10:00 02/13/20 12:00 02/13/20 14:00 Temperature 36.8 C Pulse Rate 107 H 113 H 117 H Respiratory Rate 16 20 22 H Blood Pressure 109/68 115/70 121/70 Pulse Oximetry 96 99 95 Intake/Output Intake/Output: Intake & Output 02/10/20 02/11/20 02/12/20 02/13/20 23:59 23:59 23:59 23:59 Intake Total 4472 2318 Output Total 0 1300 Balance 4472 1018 Meds/Results Medications: Active Medications Generic Name Dose Route Start Last Admin Trade Name Freq PRN Reason Stop Dose Admin Acetaminophen 1,000 mg 02/12/20 19:36 02/13/20 00:54 Tylenol Tablet PO 1,000 mg Q6H PRN Administration Mild Pain (1-3) or Fever Carvedilol 12.5 mg 02/13/20 17:00 Coreg PO BID NHI Enoxaparin Sodium 40 mg 02/13/20 10:10 02/13/20 11:44 Lovenox SUB-Q 40 mg DAILY NHI Administration Glucagon 1 mg 02/12/20 14:27 Glucagon For Inj IM PRN PRN Hypoglycemia Protocol Glucose 15 gm 02/12/20 14:27 Glutose 15 PO PRN PRN Hypoglycemia Protocol Hydromorphone HCl 1 mg 02/12/20 14:31 02/13/20 13:15 Dilaudid Inj IV PUSH 1 mg Q3H PRN Administration Pain Rated 7-10 Piperacillin/Tazobactam/Dextrose 3.375 gm in 50 mls @ 100 mls/hr 02/12/20 18:00 02/13/20 11:44 Zosyn 3.375 Gm/D5w 50ml Pm IVPB 100 mls/hr Q6HR NHI Administration Potassium Chloride/Dextrose/Sod Cl 1,000 mls @ 150 mls/hr 02/12/20 14:30 02/13/20 11:52 Kcl 20 Meq/D5/0.45% Sod Chl IV CONT 150 mls/hr .Q6H40M NHI Administration Dextrose 1,000 mls @ 100 mls/hr 02/12/20 14:27 Dextrose 5% 1,000 Ml IVPB PRN PRN Hypog
[2020-02-13 14:42] LABS: Glucose Point of Care 176 (65-105)
[2020-02-13] MEDS: VANCOMYCIN HCL 2,000 MG in SODIUM CHLORIDE 0.9% IV 500 ML 250 MG IVPB (15:06)
[2020-02-13 15:57] LABS: Glucose Point of Care 165 (65-105)
[2020-02-13 16:48] LABS: Glucose Point of Care 175 (65-105)
[2020-02-13] MEDS: carvediloL 12.5 MG TABLET PO (16:49)
[2020-02-13 17:53] LABS: Glucose Point of Care 167 (65-105)
[2020-02-13 18:18] LABS: Blood Urea Nitrogen 17 mg/dL (9-20); Calcium 7.7 mg/dL (8.4-10.2); Carbon Dioxide 13 mmol/L (22-30); Chloride 109 mmol/L (98-107); Estimated CRCL calculation 44 ml/min; Estimated Glomerular Filt Rate 28; Glucose 187 mg/dL (75-110); Potassium 5.5 mmol/L (3.4-5.0); Sodium 129 mmol/L (137-145)
[2020-02-13] MEDS: INSULIN HUMAN REGULAR (*BKC) 100 UNITS in SODIUM CHLORIDE 0.9% IV 99 ML 11.5 UNITS IV CONT (18:56)
[2020-02-13] MEDS: DEXTROSE 5%/0.45% SOD CHL 1,000 ML 150 ML IV CONT (18:56)
[2020-02-13 19:03] LABS: Glucose Point of Care 165 (65-105)
[2020-02-13 20:20] LABS: Glucose Point of Care 176 (65-105)
[2020-02-13 21:17] LABS: Glucose Point of Care 175 (65-105)
[2020-02-13 22:16] LABS: Glucose Point of Care 168 (65-105)
[2020-02-13 23:19] LABS: Glucose Point of Care 171 (65-105)
[2020-02-14] VITALS (22 sets, daily range): BP systolic 71–110; BP diastolic 41–78; PULSE 87–118; RESP 18–25; TEMP 36.8–37.9; O2SAT 94–100
[2020-02-14 00:25] LABS: Glucose Point of Care 177 (65-105)
[2020-02-14 00:57] LABS: Blood Urea Nitrogen 18 mg/dL (9-20); Calcium 7.6 mg/dL (8.4-10.2); Carbon Dioxide 15 mmol/L (22-30); Chloride 106 mmol/L (98-107); Estimated CRCL calculation 36 ml/min; Estimated Glomerular Filt Rate 22; Glucose 171 mg/dL (75-110); Potassium 4.2 mmol/L (3.4-5.0); Sodium 128 mmol/L (137-145)
--- NOTE | 2020-02-14 01:25 | PC.NURSE ---
Dr. Rothman notifed of current creatine and urine output. Continue current IVF. Consult Nephrology in AM. Get urine electrolytes and Eosiniphil. CPK with next set of labs.
--- NOTE | 2020-02-14 02:15 | PC.NURSE ---
Dr. Onofre notified of blood pressure drop. to the 70's SBP. Also notified of Fever breaking. Give 500 NS bolus x1 now. Call if blood pressure is still low after bolus.
[2020-02-14] MEDS: SODIUM CHLORIDE 0.9% IV 1,000 ML 500 ML IV CONT (02:19)
[2020-02-14] MEDS: DEXTROSE 5%/0.45% SOD CHL 1,000 ML 150 ML IV CONT (02:31)
[2020-02-14] MEDS: INSULIN HUMAN REGULAR (*BKC) 100 UNITS in SODIUM CHLORIDE 0.9% IV 99 ML 12.8 UNITS IV CONT (02:34)
[2020-02-14] MEDS: ACETAMINOPHEN 500 MG TABLET 1000 MG PO ×2 (02:34→20:48)
[2020-02-14 02:39] LABS: Glucose Point of Care 158 (65-105)
--- NOTE | 2020-02-14 03:06 | PCDIET ---
Spoke with Dr. Onofre regarding continued low blood pressures. Give an additional 500NS bolus. Consent for central line.
[2020-02-14] MEDS: SODIUM CHLORIDE 0.9% IV 500 ML 999 ML IV CONT (03:07)
[2020-02-14 03:13] LABS: Creatinine Urine 95.5 mg/dL
[2020-02-14 03:42] LABS: Glucose Point of Care 143 (65-105)
[2020-02-14 03:49] LABS: Potassium Urine Random 26.1 meq/L; Sodium Urine Random 35 meq/L
--- NOTE | 2020-02-14 04:21 | WPDPROCEDUR ---
Procedures Central Line Placement Right IJ: Central Line Date: 02/14/20 Central Line Time: 04:21 Discussed w/ the patient/family/POA,the placement of a central venous catheter, including its clinical necessity/indication & associated potential risks, benifits and alternatives.: Yes Time Out Performed: Yes Patient Position: supine Patient placed on monitor/pulse ox: Yes Provider Prep: mask, sterile gown, sterile gloves, Max. sterile barrier precautions, cap and hand hygiene Central line prep: Povidone-Iodine 1% Local anesthesia used: lidocaine 1% Amount of anesthesia used (ml): 5 Ultrasound used for placement: Yes Central line lumen inserted: triple Hungarian: 7 Length (cm): 17 Depth of Insertion (cm): 16 Post procedure: sutured in place, good blood return, all ports aspirated, flushed, capped, tegaderm, hemostatic disc and antimicrobial disc Post procedure x-ray: tip of catheter in good position and no pneumothorax seen Patient tolerated procedure: well Complications: none Additional comments: Date of service was 02/14/2020 at 04:00 hrs.
[2020-02-14] MEDS: NOREPINEPHRINE 8 MG/D5W 250 ML 8 MG/250 ML BAG 9.4 MG IV CONT (04:38)
[2020-02-14 05:23] LABS: Glucose Point of Care 150 (65-105)
[2020-02-14 05:31] LABS: Basophils Percent Auto 0.2 % (0.2-1.2); Eosinophils Absolute Auto 0.1 K/mm3 (0-0.3); Hematocrit 32.6 % (42.0-52.0); Hemoglobin 10.6 g/dL (14.0-18.0); Immature Granulocyte Absolute 0.21 K/mm3 (0.00-0.031); Lymphocytes Absolute Auto 0.88 K/mm3 (0.9-3.2); Lymphocytes Percent Auto 8.3 % (18.3-44.2); Mean Corpuscular HGB Conc 32.5 g/dl (32-36); Mean Corpuscular Hemoglobin 30.6 pg (26-34); Mean Corpuscular Volume 94.2 fl (80-100); Monocytes Absolute Auto 1.1 K/mm3 (0.1-0.6); Monocytes Percent Auto 10.5 % (2.6-8.5); Neutrophils Absolute Auto 8.3 K/mm3 (1.3-6.7); Platelet Count Result 124 k/mm3 (150-375); Red Blood Count 3.46 M/mm3 (4.6-6.20); Red Cell Distribution Width 15.4 % (11.5-14.5); White Blood Count 10.6 K/mm3 (4.5-10.0)
[2020-02-14 05:40] LABS: Creatine Kinase < 20 U/L (55-170)
[2020-02-14 06:18] LABS: Alanine Aminotransferase 40 U/L (4-50); Albumin Level 2.5 g/dL (3.5-5.1); Alkaline Phosphatase 101 U/L (38-126); Aspartate Amino Transferase 65 U/L (17-59); Bilirubin,Total 0.8 mg/dL (0.2-1.3); Blood Urea Nitrogen 19 mg/dL (9-20); CRP 24.8 mg/dL (<1.0); Carbon Dioxide 14 mmol/L (22-30); Chloride 109 mmol/L (98-107); Estimated CRCL calculation 34 ml/min; Estimated Glomerular Filt Rate 20; Glucose 137 mg/dL (75-110); Phosphorus 2.8 mg/dL (2.5-4.5); Potassium 3.8 mmol/L (3.4-5.0); Sodium 129 mmol/L (137-145)
[2020-02-14 06:50] LABS: Glucose Point of Care 154 (65-105)
[2020-02-14] MEDS: ENOXAPARIN 30 MG/0.3 ML SYRINGE SUB-Q (09:25)
[2020-02-14] MEDS: SODIUM BICARBONATE 8.4% 150 MEQ in WATER, STERILE FOR INJECTION 950 ML 75 MEQ IV CONT ×2 (09:25→23:32)
--- NOTE | 2020-02-14 10:01 | PCDIET ---
Nutrition Consult Complete: Goal: Controlled blood sugar Pt current nutrition is NPO. Nutrition recommendation: Agree Last recorded weight is 136.4 kg. Labs Reviewed:A1c Pending, Glucose 137 Additional Notes: Pt with open wound waiting on surgical consult. Currently NPO. Pt is a newly dx diabetic. He eats regular meals, likes protein, and drinks crystal light or unsweet tea and water. He eats some veggies and understands where carbs are found. We discussed importance of protein/healthy fat at all meals, limiting carbs to under 60g per meal or less, and increasing non-starchy veggies. Pt instructions added to d/c paperwork and outpatient referral for in depth DM edu started. We will continue to monitor every five days. Recommend ADAT to [facility].
[2020-02-14 10:07] LABS: Vancomycin Trough 17.9 ug/mL (10.0-20.0)
--- NOTE | 2020-02-14 10:24 | WPDUROPN2 ---
Progress Note: A&P Assessment and Plan (1) Cellulitis of scrotum: Code(s): N49.2 - Inflammatory disorders of scrotum Status: Acute Assessment and Plan: Progression and patient's overall condition and scrotal swelling/inflammation. He now has at least a very small visible abscess that has drained spontaneously in the left lateral scrotal base, near the lower inguinal canal. Remainder of the scrotal exam shows progression in the swelling with some areas of duskiness in the anterior scrotal wall. This is not frankly necrotic at this point. Will get a CT scan of the abdomen and pelvis without contrast (given his acute kidney injury). Based on the CT scan findings at home make a determination as to whether he needs more extensive drainage from the small cavity in the left lateral scrotal wall. Subjective Subjective Date/Time Seen: 02/14/20 10:24 Scrotal cellulitis/infection. Review of Systems Cardiovascular: Cardiovascular: Denies chest pain, Denies lightheadedness, Denies palpitations and Denies dyspnea Respiratory: Respiratory: Denies dyspnea Gastrointestinal: Gastrointestinal: Denies diarrhea, Denies nausea and Denies vomiting Genitourinary: Genitourinary: Denies hematuria and Denies dysuria Endocrine: Endocrine: Denies palpitations Exam Const: General: no acute distress Resp: Effort & Inspection: normal respiratory effort GI: Inspection: non-distended GI Palp: No abdominal tenderness and No Guarding due to palpation present (GI) Auscultation: normal bowel sounds : Male General Exam: Yes edema, Yes erythema and Yes other (scant drainage from small cavity left lateral scrotal base) Objective Data Vital Signs Vital Signs: Vital Signs - 24 hr 02/13/20 12:00 02/13/20 14:00 02/13/20 15:05 Temperature 98.3 F 99.9 F H Pulse Rate 113 H 117 H Respiratory Rate 20 22 H Blood Pressure 115/70 121/70 Pulse Oximetry 99 95 02/13/20 16:00 02/13/20 16:05 02/13/20 16:49 Temperature 102.7 F H 102.7 F H Pulse Rate 125 H 123 H Respiratory Rate 23 H Blood Pressure Pulse Oximetry 99 02/13/20 18:00 02/13/20 19:45 02/13/20 20:00 Temperature 100.9 F H Pulse Rate 123 H 132 H 123 H Respiratory Rate 25 H 22 H 24 H Blood Pressure 110/57 L 115/61 Pulse Oximetry 100 100 98 02/13/20 21:04 02/13/20 22:00 02/13/20 23:19 Temperature 100.9 F H Pulse Rate 118 H 117 H Respiratory Rate 19 23 H Blood Pressure 98/56 L Pulse Oximetry 97 97 02/14/20 00:00 02/14/20 02:00 02/14/20 02:04 Temperature 100.2 F H 98.6 F Pulse Rate 118 H 96 102 H Respiratory Rate 25 H 20 19 Blood Pressure 107/54 L 82/50 L 76/49 L Pulse Oximetry 97 94 97 02/14/20 02:08 02/14/20 02:10 02/14/20 02:17 Temperature Pulse Rate 103 H 103 H 101 H Respiratory Rate 21 H Blood Pressure 85/48 L 79/43 L 71/48 L Pulse Oximetry 96 02/14/20 02:30 02/14/20 03:00 02/14/20 03:45 Temperature Pulse Rate 98 95 91 Respiratory Rate 23 H 20 Blood Pressure 78/48 L 76/52 L 78/41 L Pulse Oximetry 96 98 02/14/20 04:00 02/14/20 04:30 02/14/20 04:45 Temperature Pulse Rate 92 90 89 Respiratory Rate 23 H Blood Pressure 78/49 L 82/51 L 77/55 L Pulse Oximetry 95 02/14/20 06:00 Temperature 98.2 F Pulse Rate 91 Respiratory Rate 24 H Blood Pressure 90/59 L Pulse Oximetry 97 Intake/Output Intake/Output: Intake & Output 02/11/20 02/12/20 02/13/20 02/14/20 23:59 23:59 23:59 23:59 Intake Total 4472 4418 1600 Output Total 0 1800 460 Balance 4472 2618 1140 Meds/Results Medications: Active Medications Generic Name Dose Route Start Last Admin Trade Name Freq PRN Reason Stop Dose Admin Acetaminophen 1,000 mg 02/12/20 19:36 02/14/20 02:34 Tylenol Tablet PO 1,000 mg Q6H PRN Administration Mild Pain (1-3) or Fever Enoxaparin Sodium 30 mg 02/14/20 09:00 02/14/20 09:25 Lovenox SUB-Q 30 mg DAILY NHI Administration Glucagon 1 mg 02/12/20 14:27
--- NOTE | 2020-02-14 10:26 | PM.IMPN ---
Subjective Date/time seen: 02/14/20 10:26 Objective Data Vital Signs Vital Signs: Vital Signs - 24 hr 02/13/20 12:00 02/13/20 14:00 02/13/20 15:05 Temperature 98.3 F 99.9 F H Pulse Rate 113 H 117 H Respiratory Rate 20 22 H Blood Pressure 115/70 121/70 Pulse Oximetry 99 95 02/13/20 16:00 02/13/20 16:05 02/13/20 16:49 Temperature 102.7 F H 102.7 F H Pulse Rate 125 H 123 H Respiratory Rate 23 H Blood Pressure Pulse Oximetry 99 02/13/20 18:00 02/13/20 19:45 02/13/20 20:00 Temperature 100.9 F H Pulse Rate 123 H 132 H 123 H Respiratory Rate 25 H 22 H 24 H Blood Pressure 110/57 L 115/61 Pulse Oximetry 100 100 98 02/13/20 21:04 02/13/20 22:00 02/13/20 23:19 Temperature 100.9 F H Pulse Rate 118 H 117 H Respiratory Rate 19 23 H Blood Pressure 98/56 L Pulse Oximetry 97 97 02/14/20 00:00 02/14/20 02:00 02/14/20 02:04 Temperature 100.2 F H 98.6 F Pulse Rate 118 H 96 102 H Respiratory Rate 25 H 20 19 Blood Pressure 107/54 L 82/50 L 76/49 L Pulse Oximetry 97 94 97 02/14/20 02:08 02/14/20 02:10 02/14/20 02:17 Temperature Pulse Rate 103 H 103 H 101 H Respiratory Rate 21 H Blood Pressure 85/48 L 79/43 L 71/48 L Pulse Oximetry 96 02/14/20 02:30 02/14/20 03:00 02/14/20 03:45 Temperature Pulse Rate 98 95 91 Respiratory Rate 23 H 20 Blood Pressure 78/48 L 76/52 L 78/41 L Pulse Oximetry 96 98 02/14/20 04:00 02/14/20 04:30 02/14/20 04:45 Temperature Pulse Rate 92 90 89 Respiratory Rate 23 H Blood Pressure 78/49 L 82/51 L 77/55 L Pulse Oximetry 95 02/14/20 06:00 Temperature 98.2 F Pulse Rate 91 Respiratory Rate 24 H Blood Pressure 90/59 L Pulse Oximetry 97 Intake/Output Intake/Output: Intake & Output 02/11/20 02/12/20 02/13/20 02/14/20 23:59 23:59 23:59 23:59 Intake Total 4472 4418 1600 Output Total 0 1800 460 Balance 4472 6573 3160 Meds/Results Medications: Active Medications Generic Name Dose Route Start Last Admin Trade Name Freq PRN Reason Stop Dose Admin Acetaminophen 1,000 mg 02/12/20 19:36 02/14/20 02:34 Tylenol Tablet PO 1,000 mg Q6H PRN Administration Mild Pain (1-3) or Fever Enoxaparin Sodium 30 mg 02/14/20 09:00 02/14/20 09:25 Lovenox SUB-Q 30 mg DAILY NHI Administration Glucagon 1 mg 02/12/20 14:27 Glucagon For Inj IM PRN PRN Hypoglycemia Protocol Glucose 15 gm 02/12/20 14:27 Glutose 15 PO PRN PRN Hypoglycemia Protocol Hydromorphone HCl 1 mg 02/12/20 14:31 02/13/20 21:03 Dilaudid Inj IV PUSH 1 mg Q3H PRN Administration Pain Rated 7-10 Insulin Aspart 100 units/ 100 mls @ 10.3 mls/hr 02/12/20 19:20 02/14/20 06:45 Sodium Chloride IV CONT 10.3 units/hr .Q9H43M NHI 10.3 mls/hr Titration Protocol 10.3 UNITS/HR Dextrose/Sodium Chloride 1,000 mls @ 150 mls/hr 02/13/20 18:35 02/14/20 02:31 Dextrose 5% Sodium Chloride 0.45% IV CONT 150 mls/hr .Q6H40M NHI Administration Norepinephrine Bitartrate 8 mg in 250 mls @ 22.5 mls/hr 02/14/20 03:40 02/14/20 05:49 Levophed 8 Mg/D5w 250 Ml IV CONT 12 mcg/min .Q11H7M NHI 22.5 mls/hr Titration Protocol 12 MCG/MIN Piperacillin Sod/Tazobactam Sod 2.25 gm in 50 mls @ 100 mls/hr 02/14/20 06:00 02/14/20 06:46 Zosyn 2.25 Gm/D5w 50 Ml IVPB 100 mls/hr Q6HR NHI Administration Sodium Bicarbonate 150 meq/ 1,100 mls @ 75 mls/hr 02/14/20 08:30 02/14/20 09:25 Sterile Water IV CONT 75 mls/hr .[id number] NHI Administration Vancomycin HCl 2,000 mg/ 500 mls @ 250 mls/hr 02/14/20 15:00 Sodium Chloride IVPB Q24H [facility] Radiology Results: ITS Impressions Scrotum Ultrasound 02/12/20 10:41 IMPRESSION: 1. Moderate to large sized complex left hydrocele with septation and echogenic material and scrotal edema. Urologic evaluation is recommended. Chest X-Ray 02/14/20 06:58 IMPRESSION: 1. Central line tip i
--- NOTE | 2020-02-14 11:14 | WPDINTPN ---
Progress Note: A&P Assessment and Plan (1) Septic shock: Code(s): A41.9 - Sepsis, unspecified organism; R65.21 - Severe sepsis with septic shock Status: Acute Assessment and Plan: patient developed hypotension, despite receiving adequate fluids, requiring central line insertion and started on Levophed - maintain MAP > 65 mmHg for adequate end organ perfusion - is patient also developed acute kidney injury, continue monitor renal function - continue vancomycin and Zosyn - check lactic acid (2) Acute kidney injury: Code(s): N17.9 - Acute kidney failure, unspecified Status: Acute Assessment and Plan: patient with worsening creatinine and, 3.4 this morning - likely related to septic shock, hypotension, infection - patient has been adequately fluid-resuscitated for his DKA - nephrology has been consulted - CK levels are normal, ultrasound of the kidneys unremarkable with no hydronephrosis - urine lytes have been ordered (3) Cellulitis of scrotum: Code(s): N49.2 - Inflammatory disorders of scrotum Status: Inactive Assessment and Plan: patient was presented with scrotal swelling which has been painful, started on 02/09/2020 and gradually worsened extend that the pain is 10/10 in intensity. - scrotal ultrasound done in the ER on 02/12/2020 showed moderate to large size complex left hydrocele with septation and echogenic material and scrotal edema, no abscess. - increasing scrotal swelling, dusky colored, purulent drainage noted. Urology evaluated the patient again this morning. Patient to get a sound of the abdomen and pelvis along with scrotal area to evaluate for abscess - continue Zosyn, vancomycin and pain control with Dilaudid (4) DKA (diabetic ketoacidoses): Qualifiers: Diabetes mellitus complication detail: without coma Diabetes mellitus type: type 1 Qualified Code(s): E10.10 - Type 1 diabetes mellitus with ketoacidosis without coma Code(s): E11.10 - Type 2 diabetes mellitus with ketoacidosis without coma Status: Acute Assessment and Plan: patient with no known history of diabetes, was found to be in DKA in the ER with elevated blood sugars, elevated anion gap, metabolic acidosis - lactic acid was normal - patient was adequately fluid-resuscitated - continue serial BMP - will transition patient to long-acting insulin sliding-scale insulin once anion gap closes. - Currently NPO - hemoglobin A1c has been sent out to [facility] (5) Obesity: Qualifiers: Obesity classification: unspecified obesity classification Obesity type: due to excess calories Serious obesity comorbidity presence: with serious comorbidity Qualified Code(s): E66.09 - Other obesity due to excess calories Code(s): E66.9 - Obesity, unspecified Status: Acute Assessment and Plan: morbid obesity, will have shoe shanker evaluate the patient (6) CHF (congestive heart failure): Code(s): I50.9 - Heart failure, unspecified Status: Acute Assessment and Plan: patient with known CHF, on Coreg, lisinopril, Lasix at home - chest x-ray did not show any acute cardiopulmonary disease - echocardiogram 03/01/2020 shows LV EF of 65-70%, stat grade 1 diastolic dysfunction is present. Mild pulmonary hypertension with RVSP of 41 mmHg. (7) DVT prophylaxis: Code(s): Z29.9 - Encounter for prophylactic measures, unspecified Status: Acute Assessment and Plan: Lovenox (8) Dietary counseling and surveillance: Code(s): Z71.3 - Dietary counseling and surveillance Status: Acute Assessment and Plan: NPO for now except ice chips Additional Plan Discussed with patient updated with his condition and plan of care. He is aware that he will be done for CT scan of the abdomen and pelvis to rule out any abscess, if he does have an abscess which will require incision and drainage code status:
[2020-02-14] MEDS: HYDROMORPHONE HCL 1 MG/ML INJ IV PUSH ×3 (12:03→22:13)
[2020-02-14 12:04] LABS: Lactic Acid Reflex 1.2 mmol/L (0.7-2.1)
[2020-02-14 12:05] LABS: Blood Urea Nitrogen 21 mg/dL (9-20); Calcium 7.4 mg/dL (8.4-10.2); Carbon Dioxide 15 mmol/L (22-30); Chloride 107 mmol/L (98-107); Estimated CRCL calculation 30 ml/min; Estimated Glomerular Filt Rate 17; Glucose 134 mg/dL (75-110); Sodium 130 mmol/L (137-145)
[2020-02-14 12:13] LABS: Glucose Point of Care 150 (65-105)
[2020-02-14 12:13] LABS: Glucose Point of Care 175 (65-105)
[2020-02-14 12:13] LABS: Glucose Point of Care 138 (65-105)
[2020-02-14 12:13] LABS: Glucose Point of Care 173 (65-105)
[2020-02-14] MEDS: INSULIN HUMAN REGULAR (*BKC) 100 UNITS in SODIUM CHLORIDE 0.9% IV 99 ML 10.3 UNITS IV CONT (12:43)
--- NOTE | 2020-02-14 12:50 | PM.CNNEP ---
Assessment and Plan Assessment and plan (1) Acute kidney injury: Code(s): N17.9 - Acute kidney failure, unspecified Status: Acute (2) Septic shock: Code(s): A41.9 - Sepsis, unspecified organism; R65.21 - Severe sepsis with septic shock Status: Acute (3) Cellulitis of scrotum: Code(s): N49.2 - Inflammatory disorders of scrotum Status: Acute (4) DKA (diabetic ketoacidoses): Qualifiers: Diabetes mellitus complication detail: without coma Diabetes mellitus type: type 1 Qualified Code(s): E10.10 - Type 1 diabetes mellitus with ketoacidosis without coma Code(s): E11.10 - Type 2 diabetes mellitus with ketoacidosis without coma Status: Acute (5) Hypertension: Code(s): I10 - Essential (primary) hypertension Status: Chronic Assessment and Plan: . Additional Plan Jamin has suffered an acute insult to his kidneys as evidence by the trend of his creatinine in the last few days. The acute insult to his kidneys is most likely acute acute tubular necrosis secondary to his acute infection, hypotension/hemodynamic instability, in association with early sepsis, prerenal factors, and concurrent use of diuretics and JENNY-I prior to admission. As already mentioned, he had to be started on vasopressor therapy to maintain his mean arterial pressure and hopefully this is only a temporary intervention until his hemodynamics stabilize with aggressive medical therapy in terms of IV antibiotic therapy and possible surgery with regard to his scrotal cellulitis. As already mentioned, Urology is following the patient and is tentatively scheduled to a bedside procedure for a possible area of focal infection in his scrotum. Further imaging has been ordered to reassess for Gordon's gangrene as well. I did have a fairly long lengthy discussion with the patient ( greater than 20 min) with regard to the possibility that his kidney function could deteriorate further and further to the point where he may require renal replacement therapy / dialysis. I discussed with them that theoretically, such intervention would be a temporary measure and till his kidney function returns back to baseline but is difficult to say if this will even occur and if it does occur, is a possible that he may remain dialysis dependent. He did appear to voice understanding. For now, would follow up on his urine electrolytes as well as his renal ultrasound to ensure there is no reversible component to his acute kidney injury and continue aggressive supportive therapy in the form of vasopressors antibiotics local wound care doctor etc the hopefully improve his overall clinical condition. I will continue follow patient with you while him is hospitalized make further conditions during his hospital course Thank you for allowing me to participate in the care this patient. History of Present Illness Reason for Consult Consult date: 02/14/20 Reason for consult: acute renal failure Chief Complaint Chief complaint: DKA/scrotal cellulitis History of Present Illness Narrative: The patient is a 44 year old male with a past medical history as outlined below who presented [facility] ER with complains of scrotal swelling. The scrotal swelling started about a week prior to admission. Initially, the patient thought that it would subside on its own it gradually worsened both in size as well as in severity with regard to pain. By the time of his presentation to the ER, he rated the pain as 10/10 in intensity. The swelling and pain seem to be more of an issue on the left side of his scrotum in comparison to the right. He denies any overt fevers or chills or any type of purulent discharge from his penis. He denies any type a trauma or injury to this area as well. Furthermore, he complained of increased thirst polydipsia and polyuria around the same time. Workup and evaluation in the emergency room demonstrated an el
--- NOTE | 2020-02-14 14:16 | WPDINFPN2 ---
Progress Note: A&P Assessment and Plan (1) Cellulitis of scrotum: Code(s): N49.2 - Inflammatory disorders of scrotum Status: Acute Assessment and Plan: Scrotal cellulitis and new DM REC PipTazo and Vanc #3, nasal and skin cultures. Subjective Date/time seen: 02/14/20 14:16 Objective Data Vital Signs Vital Signs: Vital Signs - 24 hr 02/13/20 15:05 02/13/20 16:00 02/13/20 16:05 Temperature 37.7 C H 39.3 C H 39.3 C H Pulse Rate 125 H Respiratory Rate 23 H Blood Pressure Pulse Oximetry 99 02/13/20 16:49 02/13/20 18:00 02/13/20 19:45 Temperature Pulse Rate 123 H 123 H 132 H Respiratory Rate 25 H 22 H Blood Pressure 110/57 L Pulse Oximetry 100 100 02/13/20 20:00 02/13/20 21:04 02/13/20 22:00 Temperature 38.3 C H 38.3 C H Pulse Rate 123 H 118 H Respiratory Rate 24 H 19 Blood Pressure 115/61 98/56 L Pulse Oximetry 98 97 02/13/20 23:19 02/14/20 00:00 02/14/20 02:00 Temperature 37.9 C H 37.0 C Pulse Rate 117 H 118 H 96 Respiratory Rate 23 H 25 H 20 Blood Pressure 107/54 L 82/50 L Pulse Oximetry 97 97 94 02/14/20 02:04 02/14/20 02:08 02/14/20 02:10 Temperature Pulse Rate 102 H 103 H 103 H Respiratory Rate 19 Blood Pressure 76/49 L 85/48 L 79/43 L Pulse Oximetry 97 02/14/20 02:17 02/14/20 02:30 02/14/20 03:00 Temperature Pulse Rate 101 H 98 95 Respiratory Rate 21 H 23 H 20 Blood Pressure 71/48 L 78/48 L 76/52 L Pulse Oximetry 96 96 98 02/14/20 03:45 02/14/20 04:00 02/14/20 04:30 Temperature Pulse Rate 91 92 90 Respiratory Rate 23 H Blood Pressure 78/41 L 78/49 L 82/51 L Pulse Oximetry 95 02/14/20 04:45 02/14/20 06:00 02/14/20 10:00 Temperature 36.8 C Pulse Rate 89 91 91 Respiratory Rate 24 H 20 Blood Pressure 77/55 L 90/59 L 101/67 Pulse Oximetry 97 97 02/14/20 12:00 Temperature 36.9 C Pulse Rate 94 Respiratory Rate 23 H Blood Pressure 107/68 Pulse Oximetry 100 Intake/Output Intake/Output: Intake & Output 02/11/20 02/12/20 02/13/20 02/14/20 23:59 23:59 23:59 23:59 Intake Total 4472 4418 1800 Output Total 0 1800 460 Balance 4472 2618 1340 Meds/Results Medications: Active Medications Generic Name Dose Route Start Last Admin Trade Name Freq PRN Reason Stop Dose Admin Acetaminophen 1,000 mg 02/12/20 19:36 02/14/20 02:34 Tylenol Tablet PO 1,000 mg Q6H PRN Administration Mild Pain (1-3) or Fever Enoxaparin Sodium 30 mg 02/14/20 09:00 02/14/20 09:25 Lovenox SUB-Q 30 mg DAILY NHI Administration Glucagon 1 mg 02/12/20 14:27 Glucagon For Inj IM PRN PRN Hypoglycemia Protocol Glucose 15 gm 02/12/20 14:27 Glutose 15 PO PRN PRN Hypoglycemia Protocol Hydromorphone HCl 1 mg 02/12/20 14:31 02/14/20 12:03 Dilaudid Inj IV PUSH 1 mg Q3H PRN Administration Pain Rated 7-10 Insulin Aspart 100 units/ 100 mls @ 7.8 mls/hr 02/12/20 19:20 02/14/20 13:21 Sodium Chloride IV CONT 7.8 units/hr .[id number] NHI 7.8 mls/hr Titration Protocol 7.8 UNITS/HR Norepinephrine Bitartrate 8 mg in 250 mls @ 9.375 mls/hr 02/14/20 03:40 02/14/20 13:25 Levophed 8 Mg/D5w 250 Ml IV CONT 5 mcg/min .[id number] NHI 9.4 mls/hr Titration Protocol 5 MCG/MIN Piperacillin Sod/Tazobactam Sod 2.25 gm in 50 mls @ 100 mls/hr 02/14/20 06:00 02/14/20 12:33 Zosyn 2.25 Gm/D5w 50 Ml IVPB Infused Q6HR NHI Infusion Sodium Bicarbonate 150 meq/ 1,100 mls @ 75 mls/hr 02/14/20 08:30 02/14/20 09:25 Sterile Water IV CONT 75 mls/hr .[id number] NHI Administration Vancomycin HCl 2,000 mg/ 500 mls @ 250 mls/hr 02/14/20 15:00 Sodium Chloride IVPB Q24H [facility] Radiology Results: ITS Impressions Scrotum Ultrasound 02/12/20 10:41 IMPRESSION: 1. Moderate to large sized complex left hydrocele with septation and echogenic material and scrotal edema. Urologic evaluation is recommended.
[2020-02-14 15:40] LABS: Total Protein Urine Random 100 mg/dL
--- NOTE | 2020-02-14 16:35 | PM.IMPN ---
Progress Note: A&P Assessment and Plan (1) Cellulitis of scrotum: Code(s): N49.2 - Inflammatory disorders of scrotum Status: Acute Assessment and Plan: Appreciate urology evaluation 02/13 CT w/o abscess Continue vancomycin and Zosyn day 3 (2) DKA (diabetic ketoacidoses): Qualifiers: Diabetes mellitus complication detail: without coma Diabetes mellitus type: type 1 Qualified Code(s): E10.10 - Type 1 diabetes mellitus with ketoacidosis without coma Code(s): E11.10 - Type 2 diabetes mellitus with ketoacidosis without coma Status: Acute Assessment and Plan: 02/13 anion gap has closed and acidosis is resolving IV NaHCO3 infusing (3) Acute kidney injury: Code(s): N17.9 - Acute kidney failure, unspecified Status: Acute Assessment and Plan: Likely due to septic shock, ATN Renal u/s negative Monitor lab (4) Hyponatremia: Code(s): E87.1 - Hypo-osmolality and hyponatremia Status: Acute Assessment and Plan: JUAN, CHF FENA 1% on 02/13, c/w prerenal, so continue IV NaHCO3 (5) Hypertension: Qualifiers: Hypertension type: unspecified Qualified Code(s): I10 - Essential (primary) hypertension Code(s): I10 - Essential (primary) hypertension Status: Chronic Assessment and Plan: Hold carvedilol and monitor pressure (6) CHF (congestive heart failure): Qualifiers: Heart failure type: diastolic Heart failure chronicity: chronic Qualified Code(s): I50.32 - Chronic diastolic (congestive) heart failure Code(s): I50.9 - Heart failure, unspecified Status: Acute Assessment and Plan: CXR with appearance of volume overload (7) Septic shock: Code(s): A41.9 - Sepsis, unspecified organism; R65.21 - Severe sepsis with septic shock Status: Acute Assessment and Plan: Resolved (8) Obesity: Qualifiers: Obesity classification: unspecified obesity classification Obesity type: due to excess calories Serious obesity comorbidity presence: with serious comorbidity Qualified Code(s): E66.09 - Other obesity due to excess calories Code(s): E66.9 - Obesity, unspecified Status: Acute Assessment and Plan: Dietary counseling Subjective Date/time seen: 02/14/20 16:35 Interval history: Admitted with new onset DM and scrotal cellulitis. 02/13: scrotum more swollen and painful. Denied bleeding, but was oozing some purulent fluid. Denied CP, SOB, Abd pain, n/v, diarrhea, bleeding. Review of Systems Review of Systems: All systems reviewed & are unremarkable except as noted in HPI and below Exam Narrative: Exam Narrative: SKIN: Erythema and edema of scrotum, penis. Erythema of eschutcheon HEENT: EOMI, PERRL, sclerae nonicteric, pharyngeal mucosa pink and intact NECK: No JVD CHEST: Clear to auscultation. Normal effort. HEART: NL S1/S2, regular, no murmur ABDOMEN: BS+, soft, nontender, no mass, no bruits EXTREMITIES: No cyanosis, edema, or clubbing NEUROLOGIC: CN intact and symmetric to inspection. MUSCULOSKELETAL: Tone and strength symmetric. PSYCH: Alert. Oriented to person, place, and time. Objective Data Vital Signs Vital Signs: Vital Signs - 24 hr 02/13/20 16:49 02/13/20 18:00 02/13/20 19:45 Temperature Pulse Rate 123 H 123 H 132 H Respiratory Rate 25 H 22 H Blood Pressure 110/57 L Pulse Oximetry 100 100 02/13/20 20:00 02/13/20 21:04 02/13/20 22:00 Temperature 100.9 F H 100.9 F H Pulse Rate 123 H 118 H Respiratory Rate 24 H 19 Blood Pressure 115/61 98/56 L Pulse Oximetry 98 97 02/13/20 23:19 02/14/20 00:00 02/14/20 02:00 Temperature 100.2 F H 98.6 F Pulse Rate 117 H 118 H 96 Respiratory Rate 23 H 25 H 20 Blood Pressure 107/54 L 82/50 L Pulse Oximetry 97 97 94 02/14/20 02:04 02/14/20 02:08 02/14/20 02:10 Temperature Pulse Rate 102 H 103 H 103 H Respiratory Rate 19 Blood Pressure
[2020-02-14] MEDS: VANCOMYCIN HCL 2,000 MG in SODIUM CHLORIDE 0.9% IV 500 ML 250 MG IVPB (16:47)
--- NOTE | 2020-02-14 16:58 | CONS_ITS ---
DATE OF CONSULTATION: 02/14/2020 REASON FOR CONSULTATION: Scrotal cellulitis. HISTORY OF PRESENT ILLNESS: The patient is a 44-year-old male who knows of no past medical history. He presented to the hospital 2 days ago with 3 days of left scrotal nodule, which then developed on the day of admission into marked pain. There is also progressive swelling over the entire scrotum. He has been afebrile here. He has been on piperacillin and vancomycin. Consultation requested today. The patient was hypotensive and believed to have septic shock. He has been in the Intensive Care Unit. The patient did have a central line placed early this morning. He also been followed by Dr. Warner. His hospital course has also been complicated by renal insufficiency, hyperglycemia, DKA. He knows of no fever, chills, or sweats at home. No trauma. He does have a Delatorre catheter in place presently. ALLERGIES: NONE KNOWN. HABITS: No tobacco. No alcohol to excess. PRESENT MEDICATIONS: As above. No immunosuppressants. PAST MEDICAL HISTORY: Right foot surgery and left ulnar nerve surgery, also tonsillectomy as a child, ORIF, hypertension. FAMILY HISTORY: Not pertinent to his present illness. SOCIAL HISTORY: He works. He is . Lives locally. REVIEW OF SYSTEMS: , GI, constitutional, skin, respiratory otherwise negative. PHYSICAL EXAMINATION: GENERAL: This is a middle-aged male who appears actual age. No acute distress. VITAL SIGNS: T-max on hospital day #1 of 39.6 and yesterday T-max of 39.3, now afebrile. Blood pressure without pressors 107/68, 94, 23, 100% room air. SKIN: Warm and dry. No generalized rashes. Well perfused throughout. HEENT: Conjunctivae are normal. The pupils are equal, round, and reactive to light. The oropharynx and oral mucosa normal. NECK: No masses or meningismus. LUNGS : Clear to auscultation and percussion. CHEST: No indwelling pacemakers. He has normal expansion. CARDIAC: Regular rate and rhythm. No murmurs or gallops. Pulses are 2+ and equal throughout. ABDOMEN: Obese, nontender. No mass. No organomegaly. EXTREMITIES: Trace ankle edema. : Has a Delatorre catheter in place. He has a marked scrotal edema with some patchy skin discoloration, violaceous. He has underlying erythema of the entire scrotum. The phallus is retracted as a result. There is marked tenderness. The thighs are normal as is the inguinal area. He does have some mild suprapubic erythema. There is no crepitus. LABORATORY DATA: Blood cultures, no growth after 2 days incubation. Urine culture obtained yesterday is in process. His white blood cell count initially 15.5, now 10.6; hemoglobin 10.6, platelets are 124, down. His differential is normal. He did have metabolic acidosis on admission. Sodium 130; CO2 is now 15, up from 13; creatinine is 3.8, up from 2.5; BUN 21, glucose 134. Hemoglobin A1c could not be performed. Calcium 7.4, but his albumin is only 2.5. His CRP is 25, down from 33. Urinalysis, multiple abnormalities, which do not suggest infection. Vancomycin trough 18. RADIOLOGY DATA: Scrotal ultrasound showed no abscesses. He has renal ultrasound as well, showed normal kidneys, no hydronephrosis. Chest x-ray, appropriate central line atelectasis. ASSESSMENT: 1. Fever and leukocytosis because of scrotal cellulitis with potential for Gordon's gangrene as well. This is often polymicrobial. MRSA infection is unlikely, but not excluded. 2. Acute renal failure. 3. New onset diabetes mellitus. RECOMMENDATIONS: 1. Continue present therapy, although the patient is at risk for worsened kidney insult as a result of the combination of piperacillin and vancomycin. Thus, I will attempt to keep that combination to the minimum ne
[2020-02-14 17:11] LABS: Blood Urea Nitrogen 23 mg/dL (9-20); Calcium 7.3 mg/dL (8.4-10.2); Carbon Dioxide 16 mmol/L (22-30); Chloride 106 mmol/L (98-107); Estimated CRCL calculation 28 ml/min; Estimated Glomerular Filt Rate 16; Glucose 112 mg/dL (75-110); Sodium 129 mmol/L (137-145)
--- NOTE | 2020-02-14 18:50 | PM.OP ---
Procedure Note - Brief Procedure Note - Brief Date of procedure: 02/14/20 Pre-op diagnosis: DKA/scrotal cellulitis Post-op diagnosis: same Procedure performed: Incision and drainage small scrotal abscess Description of procedure: The patient is in his ICU bed with the left hemiscrotum and left medial thigh are prepped with betadine and sterile towels placed. He has a small 2-3cm area that has spontaneously drained scant purulent fluid. I anesthetized the surrounding skin with 1% Lidocaine. The area of purulunce is open with a 15 scalpel blade. A small amount of necrotic tissue is excised. The abscess cavity is then copiously irrigated with saline. Probing with a sterile Q-tip shows that this is a very localized cavity without tracking. 1/4 iodoform gauze was then used to pack the abscess. Blood loss was estimated at 5cc. The patient tolerated this bedside procedure well. . Anesthesia: local Surgeon: Kiet Warner MD Estimated blood loss (mL): 5 Drains: No Packing: Yes (1/4 Iodoform) Pathology: none sent Complications: No immediate complications Condition: stable Disposition: ICU
[2020-02-14 19:46] LABS: Glucose Point of Care 94 (65-105)
[2020-02-14 19:46] LABS: Glucose Point of Care 127 (65-105)
[2020-02-14 19:46] LABS: Glucose Point of Care 131 (65-105)
[2020-02-14 19:46] LABS: Glucose Point of Care 114 (65-105)
[2020-02-14 19:47] LABS: Glucose Point of Care 111 (65-105)
[2020-02-14 19:47] LABS: Glucose Point of Care 103 (65-105)
[2020-02-14 20:42] LABS: Glucose Point of Care 93 (65-105)
[2020-02-14 21:02] LABS: Blood Urea Nitrogen 25 mg/dL (9-20); Calcium 7.2 mg/dL (8.4-10.2); Carbon Dioxide 16 mmol/L (22-30); Chloride 107 mmol/L (98-107); Estimated CRCL calculation 27 ml/min; Estimated Glomerular Filt Rate 15; Glucose 97 mg/dL (75-110); Potassium 3.9 mmol/L (3.4-5.0); Sodium 131 mmol/L (137-145)
[2020-02-14 22:09] LABS: Glucose Point of Care 88 (65-105)
[2020-02-15] VITALS (9 sets, daily range): BP systolic 88–125; BP diastolic 57–68; PULSE 97–107; RESP 19–23; TEMP 36.9–37.3; O2SAT 93–98
[2020-02-15 00:11] LABS: Glucose Point of Care 92 (65-105)
[2020-02-15 00:37] LABS: Blood Urea Nitrogen 26 mg/dL (9-20); Calcium 7.1 mg/dL (8.4-10.2); Carbon Dioxide 14 mmol/L (22-30); Chloride 107 mmol/L (98-107); Estimated CRCL calculation 25 ml/min; Estimated Glomerular Filt Rate 14; Glucose 94 mg/dL (75-110); Potassium 3.8 mmol/L (3.4-5.0); Sodium 130 mmol/L (137-145)
[2020-02-15 03:03] LABS: Glucose Point of Care 92 (65-105)
[2020-02-15 04:03] LABS: Glucose Point of Care 103 (65-105)
[2020-02-15] MEDS: HYDROMORPHONE HCL 1 MG/ML INJ IV PUSH ×3 (04:07→11:52)
[2020-02-15 05:23] LABS: Hematocrit 33.3 % (42.0-52.0); Hemoglobin 10.9 g/dL (14.0-18.0); Mean Corpuscular HGB Conc 32.7 g/dl (32-36); Mean Corpuscular Hemoglobin 30.4 pg (26-34); Mean Platelet Volume 10.7 fl (7.4-10.4); Platelet Count Result 142 k/mm3 (150-375); Red Blood Count 3.58 M/mm3 (4.6-6.20); Red Cell Distribution Width 15.6 % (11.5-14.5); White Blood Count 12.9 K/mm3 (4.5-10.0)
[2020-02-15 05:46] LABS: Alanine Aminotransferase 54 U/L (4-50); Albumin Level 2.5 g/dL (3.5-5.1); Alkaline Phosphatase 114 U/L (38-126); Aspartate Amino Transferase 46 U/L (17-59); Bilirubin,Total 0.7 mg/dL (0.2-1.3); Blood Urea Nitrogen 29 mg/dL (9-20); Calcium 7.1 mg/dL (8.4-10.2); Carbon Dioxide 15 mmol/L (22-30); Chloride 107 mmol/L (98-107); Estimated CRCL calculation 23 ml/min; Estimated Glomerular Filt Rate 13; Glucose 108 mg/dL (75-110); Phosphorus 4.2 mg/dL (2.5-4.5); Potassium 3.8 mmol/L (3.4-5.0); Sodium 132 mmol/L (137-145)
[2020-02-15 06:27] LABS: Glucose Point of Care 107 (65-105)
--- NOTE | 2020-02-15 07:25 | PC.NURSE ---
Outpatient referral for Initial DSMT and Initial MNT started. [facility] Patient has no PCP.
[2020-02-15 07:41] LABS: Glucose Point of Care 123 (65-105)
[2020-02-15] MEDS: ENOXAPARIN 30 MG/0.3 ML SYRINGE SUB-Q (08:07)
[2020-02-15 10:07] LABS: Blood Urea Nitrogen 31 mg/dL (9-20); Carbon Dioxide 16 mmol/L (22-30); Chloride 105 mmol/L (98-107); Estimated CRCL calculation 22 ml/min; Estimated Glomerular Filt Rate 12; Glucose 109 mg/dL (75-110); Potassium 3.9 mmol/L (3.4-5.0); Sodium 131 mmol/L (137-145)
--- NOTE | 2020-02-15 10:17 | WPDUROPN2 ---
Progress Note: A&P Assessment and Plan (1) Septic shock: Code(s): A41.9 - Sepsis, unspecified organism; R65.21 - Severe sepsis with septic shock Status: Acute (2) Cellulitis of scrotum: Code(s): N49.2 - Inflammatory disorders of scrotum Status: Acute Assessment and Plan: - CT scan without air 02/14/20 and I/D without significant drainage 02/14/20. - Appears to have progression and patient's overall condition with scrotal swelling/inflammation and some areas of duskiness in the anterior scrotal wall. This is not frankly necrotic at this point. - No Gordon's gangrene at this time and would hold off on additional surgical intervention at this time, however I am concerned that condition may worsen & require extensive surgery/debridment. Patient may benefit from transfer to higher level facility in case condition does not improve or continues to worsen. (3) DKA (diabetic ketoacidoses): Qualifiers: Diabetes mellitus complication detail: without coma Diabetes mellitus type: type 1 Qualified Code(s): E10.10 - Type 1 diabetes mellitus with ketoacidosis without coma Code(s): E11.10 - Type 2 diabetes mellitus with ketoacidosis without coma Status: Acute Subjective Subjective Date/Time Seen: 02/15/20 10:17 - I/D yesterday with Dr. Warner - still on IV Levophed Exam Const: General: no acute distress Eyes: General: appearance normal, both eyes and all related structures Resp: Effort & Inspection: normal respiratory effort : Other: scrotum with significant edema, erythema - do not not drainable collections, but appears to be worsening cellulitis. I and D site clean. suprapubic erythema and tenderness decreased Urinary Catheter: Urinary Catheter: patent and draining and urine clear Neuro: Speech: normal speech Objective Data Vital Signs Vital Signs: Vital Signs - 24 hr 02/14/20 12:00 02/14/20 14:00 02/14/20 16:00 Temperature 36.9 C 36.9 C Pulse Rate 94 95 94 Respiratory Rate 23 H 22 H 22 H Blood Pressure 107/68 110/73 110/78 Pulse Oximetry 100 96 94 02/14/20 18:00 02/14/20 20:00 02/14/20 21:58 Temperature 37.3 C Pulse Rate 99 100 102 H Respiratory Rate 18 25 H Blood Pressure 110/75 103/60 Pulse Oximetry 95 96 02/14/20 22:00 02/14/20 23:21 02/15/20 00:00 Temperature 37.2 C Pulse Rate 99 99 99 Respiratory Rate 19 19 19 Blood Pressure 97/56 L 88/57 L Pulse Oximetry 96 96 97 02/15/20 02:00 02/15/20 03:27 02/15/20 04:00 Temperature 37.3 C Pulse Rate 103 H 107 H 106 H Respiratory Rate 19 20 19 Blood Pressure 104/63 102/60 Pulse Oximetry 98 96 93 02/15/20 06:00 02/15/20 07:46 02/15/20 07:49 Temperature Pulse Rate 102 H 105 H 104 H Respiratory Rate 19 21 H 20 Blood Pressure 98/57 L Pulse Oximetry 94 96 96 02/15/20 08:00 02/15/20 10:00 Temperature 36.9 C Pulse Rate 103 H 106 H Respiratory Rate 22 H 23 H Blood Pressure 113/68 125/66 Pulse Oximetry 96 97 Intake/Output Intake/Output: Intake & Output 02/12/20 02/13/20 02/14/20 02/15/20 23:59 23:59 23:59 23:59 Intake Total 4472 4418 3450 600 Output Total 0 1800 1060 550 Balance 4472 8258 0350 50 Meds/Results Medications: Active Medications Generic Name Dose Route Start Last Admin Trade Name Freq PRN Reason Stop Dose Admin Acetaminophen 1,000 mg 02/12/20 19:36 02/14/20 20:48 Tylenol Tablet PO 1,000 mg Q6H PRN Administration Mild Pain (1-3) or Fever Enoxaparin Sodium 30 mg 02/14/20 09:00 02/15/20 08:07 Lovenox SUB-Q 30 mg DAILY [facility]I Administration Glucagon 1 mg 02/12/20 14:27 Glucagon For Inj IM PRN PRN Hypoglycemia Protocol Glucose 15 gm 02/12/20 14:27 Glutose 15 PO PRN PRN Hypoglycemia Protocol Hydromorphone HCl 1 mg 02/12/20 14:31 02/15/20 09:24 Dilaudid Inj IV PUSH 1 mg Q3H PRN Administration Pain Rated 7-10 Insulin Aspart 100 units/ 100 mls @ 4.4 mls/hr
--- NOTE | 2020-02-15 10:23 | PM.TDS ---
Transfer Discharge Sum: Prov Provider Date of admission: 02/12/20 12:51 Primary care physician: SALES OFFICE COORDINATOR PHYSICIAN Admitting clinician: Forest Garcia MD Consults: 02/12/20 Consult to Physician Routine Comment: OFFICE NOTIFIED OF CONSULT Consulting Provider: Kiet Warner scallop dredger/MD group to consult: broderick Reason for consultation: scrotal cellulitis Has provider been notified: Yes 02/12/20 14:31 Consult to Dietitian Routine Reason for Consult:: DKA admission 02/14/20 Consult to Physician Routine Comment: Consulting Provider: Chioma Croft Reason for consultation: JUAN Has provider been notified: Yes Consult to Physician Routine Comment: Consulting Provider: Kami Rothman scallop dredger/MD group to consult: Nephrology Dr. Blackman Reason for consultation: ARF Has provider been notified: Yes 02/14/20 07:00 Wound/ET Consult Routine Reason for Consult:: SCROTAL CELULITIS 02/14/20 07:43 Consult to Physician Routine Comment: called pager per request Consulting Provider: James Gudino scallop dredger/ group to consult: infectious disease - Dr. Gudino Reason for consultation: fevers, scrotal cellulitis, Has provider been notified: Yes Transfer Discharge Sum: Med Medications Active and Home Medications: Home Medications carvedilol 12.5 mg PO BID 02/12/20 [History Confirmed 02/12/20] furosemide 20 mg PO DAILY 02/12/20 [History Confirmed 02/12/20] lisinopril 10 mg PO DAILY 02/12/20 [History Confirmed 02/12/20] Active Medications Acetaminophen (Tylenol Tablet) 1,000 mg PO Q6H PRN PRN Reason: Mild Pain (1-3) or Fever Last Admin: 02/14/20 20:48 Dose: 1,000 mg Documented by: Enoxaparin Sodium (Lovenox) 30 mg SUB-Q DAILY NHI Last Admin: 02/15/20 08:07 Dose: 30 mg Documented by: Glucagon (Glucagon For Inj) 1 mg IM PRN PRN; Protocol PRN Reason: Hypoglycemia Glucose (Glutose 15) 15 gm PO PRN PRN; Protocol PRN Reason: Hypoglycemia Hydromorphone HCl (Dilaudid Inj) 1 mg IV PUSH Q3H PRN PRN Reason: Pain Rated 7-10 Last Admin: 02/15/20 09:24 Dose: 1 mg Documented by: Insulin Aspart 100 units/ (Sodium Chloride) 100 mls @ 4.4 mls/hr IV CONT .[id number] [facility]; Protocol Last Admin: 02/15/20 08:05 Dose: Not Given Documented by: Norepinephrine Bitartrate (Levophed 8 Mg/D5w 250 Ml) 8 mg in 250 mls @ 0 mls/hr IV CONT .Q0M [facility]; Protocol Last Titration: 02/15/20 09:02 Dose: 0 mcg/min, 0 mls/hr Documented by: Piperacillin Sod/Tazobactam Sod (Zosyn 2.25 Gm/D5w 50 Ml) 2.25 gm in 50 mls @ 100 mls/hr IVPB Q6HR [facility] Last Infusion: 02/15/20 05:40 Dose: Infused Documented by: Sodium Bicarbonate 150 meq/ (Sterile Water) 1,100 mls @ 75 mls/hr IV CONT .[id number] [facility] Last Admin: 02/14/20 23:32 Dose: 75 mls/hr Documented by: Vancomycin HCl 2,000 mg/ (Sodium Chloride) 500 mls @ 250 mls/hr IVPB Q24H [facility] Last Infusion: 02/14/20 18:47 Dose: Infused Documented by: Transfer Discharge Sum: Hosp Hospital Course Hospital course: Jamin Field Jr. is a 44 year old male admitted with swollen, painful scrotum and newly dx uncontrolled DM with DKA. Treated with IV Vanc and Zosyn as well as DKA protocol. Seen by supervisor logging, ID, urology. Latter was able to obtain only small amount of purulent discharge from scrotum. U/s and CT revelaed no abscess or evident of extension. Transferred to [facility] due to risk of Gordon's gangrene. Time Spent with Patient Time attestation: Total time spent providing and/or coordinating transfer services: Total time spent: Greater than 30 minutes Exam Narrative: Exam Narrative: SKIN: Erythema and edema of scrotum, penis. Erythema of eschutcheon. Open area on scrotum. HEENT: EOMI, PERRL, sclerae nonicteric, pharyngeal mucosa pink and intact NECK: No JVD CHEST: Clear to auscultation. Normal effort. HEART: NL S1/S2, regular, no murmur ABDOMEN: BS+, soft, nontender, no mass, no bruits EXTREMITIES: No cyanosis, edema, or clubbing NEUROLOGIC: C
[2020-02-15 10:33] LABS: Glucose Point of Care 94 (65-105)
--- NOTE | 2020-02-15 11:50 | WPDINTPN ---
Progress Note: A&P Assessment and Plan (1) Septic shock: Code(s): A41.9 - Sepsis, unspecified organism; R65.21 - Severe sepsis with septic shock Status: Acute Assessment and Plan: patient developed hypotension, despite receiving adequate fluids, requiring central line insertion and started on Levophed - maintain MAP > 65 mmHg for adequate end organ perfusion - is patient also developed acute kidney injury, continue monitor renal function - continue vancomycin and Zosyn, appreciate ID evaluation recommendation - lactic acid is 1.2 (2) Acute kidney injury: Code(s): N17.9 - Acute kidney failure, unspecified Status: Acute Assessment and Plan: patient with worsening creatinine and, 3.4 this morning - likely related to septic shock, hypotension, infection - patient has been adequately fluid-resuscitated for his DKA - appreciate Nephrology evaluation recommendation - CK levels are normal, ultrasound of the kidneys unremarkable with no hydronephrosis - urine lytes have been ordered (3) Cellulitis of scrotum: Code(s): N49.2 - Inflammatory disorders of scrotum Status: Inactive Assessment and Plan: patient was presented with scrotal swelling which has been painful, started on 02/09/2020 and gradually worsened extend that the pain is 10/10 in intensity. - scrotal ultrasound done in the ER on 02/12/2020 showed moderate to large size complex left hydrocele with septation and echogenic material and scrotal edema, no abscess. - increasing scrotal swelling, dusky colored, purulent drainage noted. Urology evaluated the patient again this morning. - 02/14/2020: Patient had I and D of small abscess on the scrotum and was packed with iodoform Gauze by Urology. - continue Zosyn, vancomycin and pain control with Dilaudid - this morning urology feels the patient needs to be transferred to a tertiary care center has scrotal swelling has increased, skin is macerated, purulent drainage noted. Color is also dusky. Urology feels that patient is at risk for Gordon's gangrene in the to have the capability to manage this patient here. - I called [facility], who accepted the patient, patient be transferred once bed is available (4) DKA (diabetic ketoacidoses): Qualifiers: Diabetes mellitus complication detail: without coma Diabetes mellitus type: type 1 Qualified Code(s): E10.10 - Type 1 diabetes mellitus with ketoacidosis without coma Code(s): E11.10 - Type 2 diabetes mellitus with ketoacidosis without coma Status: Acute Assessment and Plan: patient with no known history of diabetes, was found to be in DKA in the ER with elevated blood sugars, elevated anion gap, metabolic acidosis - lactic acid was normal - patient was adequately fluid-resuscitated - continues to be on insulin infusion, continue Cl BMPs - will transition patient to long-acting insulin sliding-scale insulin once anion gap closes. - Currently NPO - hemoglobin A1c has been sent out to [facility] and pending (5) Obesity: Qualifiers: Obesity classification: unspecified obesity classification Obesity type: due to excess calories Serious obesity comorbidity presence: with serious comorbidity Qualified Code(s): E66.09 - Other obesity due to excess calories Code(s): E66.9 - Obesity, unspecified Status: Acute Assessment and Plan: morbid obesity, will have accounting manager evaluate the patient (6) CHF (congestive heart failure): Qualifiers: Heart failure type: diastolic Heart failure chronicity: chronic Qualified Code(s): I50.32 - Chronic diastolic (congestive) heart failure Code(s): I50.9 - Heart failure, unspecified Status: Acute Assessment and Plan: patient with known CHF, on Coreg, lisinopril, Lasix at home - chest x-ray did not show any acute cardiopulmonary disease - echocardiogram 03/01/2020 shows LV EF of 6
[2020-02-15 11:52] LABS: Glucose Point of Care 107 (65-105)
--- NOTE | 2020-02-15 11:58 | PC.NURSE ---
Reported to Haleigh melgar [facility] that patient received pain medication prior to transfer and that blood sugar at 1130 was 107 with insulin drip going at 2.8 units/hr.
[2020-02-28 10:59] LABS: Reference Lab Test Result >14.0%
== END 2020-02-15 11:55 | disposition short-term general hospital (02) | DRG 717 ==
LOC: ANHED 12:55 → ANHICU 02-13 15:41
PROVIDERS: Internal Medicine; Nurse Practitioner; Admitting Provider Internal Medicine; Emergency Provider Emergency Medicine; Visit Provider Internal Medicine
DX: N49.2 Inflammatory disorders of scrotum (principal); E10.10 Type 1 diabetes mellitus with ketoacidosis without coma; A41.9 Sepsis, unspecified organism; R65.21 Severe sepsis with septic shock; N17.9 Acute kidney failure, unspecified; E87.1 Hypo-osmolality and hyponatremia; I50.32 Chronic diastolic (congestive) heart failure; Z68.42 Body mass index [BMI] 45.0-49.9, adult; I27.20 Pulmonary hypertension, unspecified; I11.0 Hypertensive heart disease with heart failure; E66.01 Morbid (severe) obesity due to excess calories; Z71.3 Dietary counseling and surveillance; Z79.899 Other long term (current) drug therapy
CPT/HCPCS: 36415; 36600; 71045; 72133; 74176; 76775; 76870; 80048; 80053; 80202; 81001; 81002; 81050; 82010; 82550; 82570; 82805; 83036; 83605; 83735; 84100; 84105; 84133; 84156; 84300; 85025; 85027; 85999; 86140; 87040; 87070; 87086; 87147; 87205; 93306; 93976; 96361; 96365; 96367; 96375; 96376; 99285; A9270; C1751; J1170; J1650; J1815; J2270; J2405; J2543; J3370; J3475; J3480; J7030; J7040; J7120

== ENCOUNTER 2021-10-31 06:44 | Observation (INO) | payer OTHER, SELFPAY ==
[2021-10-31] VITALS (23 sets, daily range): BP systolic 126–185; BP diastolic 69–116; PULSE 92–112; RESP 16–31; TEMP 36.2–36.3; O2SAT 94–99; BMI 44.1; BMI 46.9
--- NOTE | ~2021-10-31 | XR_ITS ---
EXAMINATION: XR chest 2V DATE: 10/31/2021 07:39 INDICATION: Chest pain. TECHNIQUE: Frontal and lateral views of the chest were obtained. COMPARISON: Chest single view 02/14/2020, CT abdomen and pelvis 02/14/2020 FINDINGS: There is mild atelectasis in the lower lung zones. There is blunting of left posterior cost ophrenic angle. No pneumothorax. The heart size is normal. There are prominent paracardial fat pads. IMPRESSION: 1. Mild atelectasis in the lower lung zones. 2. Blunting of left posterior costophrenic angle, consistent with scarring versus tiny pleural effusi on. Reviewed, dictated and finalized at location A. BPM DEVELOPER IMPRESSION: 1. Mild atelectasis in the lower lung zones. 2. Blunting of left posterior costophrenic angle, consistent with scarring vers us tiny pleural effusion.
--- NOTE | 2021-10-31 06:52 | ECG_ITS ---
Measurements Intervals [place] Rate: 108 P: 41 AR: 132 QRS: -18 QRSD: 102 T: 59 QT: 350 QTc: 471 Interpretive Statements SINUS TACHYCARDIA POSSIBLE LEFT ATRIAL ENLARGEMENT BORDERLINE R WAVE PROGRESSION, ANTERIOR LEADS CONSIDER INFERIOR INFARCT, AGE INDETERMINATE BORDERLINE T WAVE ABNORMALITY- HIGH LATERAL LEADS BASELINE ARTIFACT- V2, V6 ABNORMAL ECG Electronically Signed On 10-31-2021 7:59:58 SALES/MARKETING by Sujit Og D.O.
[2021-10-31] MEDS: ASPIRIN 81 MG CHEWABLE TABLET 324 MG PO (07:33)
[2021-10-31 07:40] LABS: Basophils Absolute Auto 0.1 K/mm3 (0.0-0.1); Basophils Percent Auto 0.7 % (0.2-1.2); Eosinophils Absolute Auto 0.2 K/mm3 (0-0.3); Hematocrit 47.4 % (42.0-52.0); Hemoglobin 15.2 g/dL (14.0-18.0); Immature Granulocyte Absolute 0.04 K/mm3 (0.00-0.031); Immature Granulocyte Percent A 0.4 % (0-0.5); Lymphocytes Absolute Auto 2.29 K/mm3 (0.9-3.2); Lymphocytes Percent Auto 21.1 % (18.3-44.2); Mean Corpuscular HGB Conc 32.1 g/dl (32-36); Mean Corpuscular Volume 93.7 fl (80-100); Mean Platelet Volume 11.6 fl (7.4-10.4); Monocytes Absolute Auto 0.9 K/mm3 (0.1-0.6); Monocytes Percent Auto 8.6 % (2.6-8.5); Neutrophils Absolute Auto 7.3 K/mm3 (1.3-6.7); Neutrophils Percent Auto 67.2 % (45.5-73.1); Platelet Count Result 237 k/mm3 (150-375); Red Blood Count 5.06 M/mm3 (4.6-6.20); Red Cell Distribution Width 13.9 % (11.5-14.5); White Blood Count 10.9 K/mm3 (4.5-10.0)
[2021-10-31 08:21] LABS: INR 1.2; Partial Thromboplastin Time 28.1 SECONDS (22.3-36.8); Prothrombin Time 14.6 Seconds (11.1-14.7)
--- NOTE | 2021-10-31 08:24 | ED.CHESTPAIN ---
HPI - Chest Pain General Chief Complaint: Chest Pain Stated Complaint: chest tightness, sob Time Seen by Provider: 10/31/21 07:05 Source: patient, RN notes reviewed and old records reviewed Mode of arrival: ambulatory Limitations: no limitations History of Present Illness HPI narrative: This is a 45 year old male with history of hypertension and congestive heart failure. He has been dealing with a cough for a couple of days. This morning, he reports he noticed left chest tightness that he states it feels like muscle tightness. He also reports tightness is worse with laying flat , and he has associated shortness of breath with supine position. He denies fever, chills, diaphoresis, nausea, vomiting or diarrhea. He just started azithromycin for his cough that was prescribed by his PCP. He rates his chest tightness at 6/10. Denies radiation of his pain. Onset: during rest Pain location: left chest Pain radiation: none Severity: moderate Quality: tightness Context: recent illness Risk Factors Coronary artery disease risk factors: hypertension Related Data Home Medications Medication Instructions Recorded Confirmed No Home Medications 10/31/21 10/31/21 Allergies Allergy/AdvReac Type Severity Reaction Status Date / Time No Known Allergies Allergy Verified 02/13/20 15:42 Review of Systems Review of Systems: All systems reviewed & are unremarkable except as noted in HPI and below PMFSH Past Medical History Medical History (Updated 10/31/21 @ 18:02 by Viviane Still MD) Cellulitis of scrotum CHF (congestive heart failure) had a life vest DM2 (diabetes mellitus, type 2) History of diverticulitis Hyperlipidemia Hypertension Obstructive sleep apnea Right foot injury Surgical History Surgical History (Updated 10/31/21 @ 14:12 by Luanne Yonug NP) History of cardiac catheterization History of decompression of ulnar nerve History of orthopedic surgery pin to right foot History of tonsillectomy S/P ORIF (open reduction internal fixation) fracture Right foot Family History Family History Father Acute myocardial infarction Diabetes mellitus Hypertension Colon cancer Mother Chronic obstructive pulmonary disease Social History Social History (Updated 10/31/21 @ 14:13 by Luanne Young NP) Social History: Patient lives with his Asiya. She is a durable power compliance attorney for healthcare. The patient desires to be a full code. The patient stated that he never smoked. Does not use any marijuana or illicit drugs. 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 From his previous admission it was noted that the patient does chew and swallow tobacco. Code status full code Smoking status: Never smoker Second hand tobacco smoke exposure: No Alcohol intake: never Substance use: never Gender identity (if verbalized by the patient): Male Spiritual care concerns: No Exam Const: General: no acute distress and alert Orientation/consciousness: patient oriented x3 Eyes: EOM: EOMs intact bilaterally Resp: Effort & Inspection: normal respiratory effort and no retractions Auscultation: clear to auscultation bilaterally Cardio: Rate: regular rate Rhythm: regular rhythm Heart sounds: no murmurs GI: GI Palp: Yes Soft to palpation, No Tenderness to palpation present (GI) and No Guarding due to palpation present (GI) Auscultation: normal bowel sounds Back/Spine/Pelvis: Back: no CVA tenderness Skin: General skin exam: normal color Rashes: no rashes Neuro: General: patient oriented x3, moves all extremities and CN's II-XI intact bilaterally Extrem: General: normal to inspection Psych: Mental Status: mental status grossly normal Affect: normal affect Course Reevaluation(s) Date: 10/31/21 Time: 09:51 Consultations Consultation #1: I Discussed case with DR. Ziegler. He agrees to consult for CHF and el
[2021-10-31] MEDS: NITROGLYCERIN SL 0.4 MG TABLET SUBLINGUAL (08:25)
[2021-10-31 08:30] LABS: D Dimer 0.48 ug/mL (<0.48)
--- NOTE | 2021-10-31 08:37 | PC.NURSE ---
This nurse gave another 0.4mg tablet of sublingual nitroglycerin per medication protocol on original order. Vital signs have been charted accordingly.
[2021-10-31 08:53] LABS: NT Pro B Type Natriuretic Pept 3060 pg/mL (5-100)
[2021-10-31 09:25] LABS: Alanine Aminotransferase 77 U/L (4-50); Alkaline Phosphatase 75 U/L (38-126); Anion Gap 6 mmol/L (8-16); Aspartate Amino Transferase 41 U/L (17-59); Bilirubin,Total 1.1 mg/dL (0.2-1.3); Blood Urea Nitrogen 18 mg/dL (9-20); Calcium 8.9 mg/dL (8.4-10.2); Carbon Dioxide 26 mmol/L (22-30); Chloride 109 mmol/L (98-107); Estimated CRCL calculation 86 ml/min; Estimated Glomerular Filt Rate > 60; Glucose 141 mg/dL (65-110); Lipase 116 U/L (23-300); Potassium 4.5 mmol/L (3.4-5.0); Sodium 141 mmol/L (137-145)
[2021-10-31 09:41] LABS: Troponin I 0.108 ng/mL (0.000-0.034)
[2021-10-31] MEDS: FUROSEMIDE INJ 40 MG/4 ML VIAL IV PUSH (09:55)
[2021-10-31] MEDS: NITROGLYCERIN OINTMENT 1 INCH DOSE TRANSDERM ×3 (09:55→22:11)
[2021-10-31 10:26] LABS: Troponin I 0.105 ng/mL (0.000-0.034)
[2021-10-31 11:32] LABS: Amphetamine Screen Urine Negative (Negative); Barbiturate Screen Urine Negative (Negative); Benzodiazepines Screen Urine Negative (Negative); Cannabinoid Screen Urine Negative (Negative); Cocaine Screen Urine Negative (Negative); Methadone Screen Urine Negative (Negative); Opiate Screen Urine Negative (Negative); Phencyclidine Screen Urine Negative (Negative)
[2021-10-31] MEDS: ENOXAPARIN 120 MG/0.8 ML SYRINGE SUB-Q (11:48)
--- NOTE | 2021-10-31 11:49 | PC.NURSE ---
Report received. Pt reports is painfree at present time. Made aware of need to inform RN if chest pain returns. Preparing to admit, awaiting bed availability upstairs.
--- NOTE | 2021-10-31 12:26 | PC.NURSE ---
Pt diuresing well, lunch tray ordered for patient.
--- NOTE | 2021-10-31 12:37 | PM.IMHP ---
H&P: HPI History of Present Illness Date/Time: 10/31/21 12:37 this is a 45-year-old male patient with a past medical history of [place] and congestive heart failure. The patient has been having a cough and some congestion for the last couple days. He did see his primary care doctor who prescribed him azithromycin. The patient has not been tested for COVID. He has been fully vaccinated for COVID-19. Today the patient noticed that he had some left chest tightness a feels as if it is muscle tightness. The patient's dyspnea becomes worse when laying flat and some a with exertion. He had no fever chills. No nausea vomiting or diarrhea. Patient was saying that his chest tightness is 6/10 and denies any radiation of the pain. The pain location is the left side the chest and feels more like tightness. The patient has not taken anything to help relieve this discomfort. His white count is 10.9. The initial troponin is 0.105, 3 hour troponin is 0.105. And 3rd troponin is 0.103. BNP is 3060. Patient's blood pressure initially was 161/104 and is now 146/102. Patient's pulse oximetry is in the upper 90s. Chest x-ray was read as mild atelectasis in the lower lung. Blunting of the left posterior costophrenic angle consistent with scarring versus tiny pleural effusions. The patient was given aspirin, nitro, Tylenol, Lasix, and Lovenox in the emergency room. The patient is being placed in observation status on date of service of 10/31/2021. Chief Complaint: Chest pain Review of Systems Review of Systems: All systems reviewed & are unremarkable except as noted in HPI and below Constitutional: Constitutional: Reports as per HPI and Reports no additional constitutional complaints Eyes: Eyes: Reports as per HPI and Reports no additional eye complaints ENT: Reports system reviewed and no additional complaints, except as documented and Reports Normal hearing present Cardiovascular: Cardiovascular: Reports no additional cardiovascular complaints Respiratory: Respiratory: Reports no additional respiratory complaints and Reports no additional respiratory complaints Gastrointestinal: Gastrointestinal: Reports as per HPI and Reports no additional gastrointestinal complaints Musculoskeletal: Musculoskeletal: Reports no additional musculoskeletal complaints Integumentary/Breasts: Skin/Breast: Reports system reviewed and no additional complaints, except as docu and Reports as per HPI Neurologic: Reports system reviewed and no additional complaints, except as documented, Reports as per HPI and Reports Normal hearing present Psychiatric: Psychiatric: Reports no additional psychiatric complaints and Reports as per HPI Endocrine: Endocrine: Reports no additional endocrine complaints Hematologic/Lymphatic: Hematologic/Lymphatic: Reports no additional hematologic/lymphatic complaints Allergic/Immunologic: Allergic/Immunologic: Reports no additional allergic/immunologic complaints [facility] Past Medical History Medical History (Updated 10/31/21 @ 14:31 by Luanne Young NP) Cellulitis of scrotum CHF (congestive heart failure) had a life vest DM2 (diabetes mellitus, type 2) History of diverticulitis Hyperlipidemia Hypertension Obstructive sleep apnea Right foot injury Surgical History Surgical History (Updated 10/31/21 @ 14:12 by Luanne Young NP) History of cardiac catheterization History of decompression of ulnar nerve History of orthopedic surgery pin to right foot History of tonsillectomy S/P ORIF (open reduction internal fixation) fracture Right foot Family History Family History Father Acute myocardial infarction Diabetes mellitus Hypertension Colon cancer Mother Chronic obstructive pulmonary disease Social History Social History (Updated 10/31/21 @ 14:13 by Luanne Young NP) Social History: Patient lives with his Asiya. She is a durable power claims attorney for
--- NOTE | 2021-10-31 12:38 | PC.NURSE ---
MAG Stroud at bedside.
--- NOTE | 2021-10-31 12:59 | PC.NURSE ---
Pt eating lunch tray.
[2021-10-31 13:51] LABS: Troponin I 0.103 ng/mL (0.000-0.034)
--- NOTE | 2021-10-31 14:45 | PC.NURSE ---
Verified with pt that he is not on any daily meds. States his PMD took him off of all meds because he had lost weight.
[2021-10-31] MEDS: hydrALAZINE HCL 20 MG/ML VIAL 10 MG IV PUSH (14:53)
--- NOTE | 2021-10-31 14:53 | PC.NURSE ---
prn medication given for pt's blood pressure. Remains painfree.
--- NOTE | 2021-10-31 15:36 | PC.NURSE ---
Pt reports saw his PMD and was told to get a covid swab for a cough. States he took two starter dose of zithromax yesterday and was told to continue the zpak if the covid test was negative. States has not really coughed since the starting the abx.
--- NOTE | 2021-10-31 15:50 | PC.NURSE ---
Dr. Ziegler at bedside for evaluation.
[2021-10-31 16:31] LABS: Glucose Point of Care 136 mg/dl (65-105)
[2021-10-31 17:11] LABS: SARS-CoV-2 RNA PCR Negative
--- NOTE | 2021-10-31 17:30 | PM.CNCAR ---
Assessment and Plan Assessment and plan (1) Uncontrolled hypertension: Code(s): I10 - Essential (primary) hypertension Status: Acute Assessment and Plan: Patient reports he was taken off all his medications by his primary physician's office over 1 year ago. He admits he has not been taking his blood pressure. He has missed several appointments in our office per records. Resume carvedilol, lisinopril. BP control fair report. 2D echocardiogram to assess LV size, function LV wall thickness. Compliance with follow-up and medications as well as lifestyle modifications counseling performed. (2) Acute exacerbation of CHF (congestive heart failure): Qualifiers: Heart failure type: systolic Qualified Code(s): I50.23 - Acute on chronic systolic (congestive) heart failure Code(s): I50.9 - Heart failure, unspecified Status: Acute Assessment and Plan: Cautious IV diuresis. Patient appears to be mildly volume overloaded with a history of nonischemic cardiomyopathy. 2D echocardiogram. Monitor electrolytes, renal function, daily weight, input and output. Low-sodium diet less than 2 g daily. Apnea link to screen for AMILCAR this evening. Telemetry. (3) Elevated troponin: Code(s): R77.8 - Other specified abnormalities of plasma proteins Status: Acute Assessment and Plan: Mild elevation, flat curve consistent with a type 2 infarction not acute coronary syndrome. He has a history of normal coronary anatomy with the exception of a stenosis in an isolated, very small branch off circumflex 2013. Discontinue systemic anticoagulation. Continue aspirin 81 mg daily, check fasting lipid profile. Add statin therapy. (4) Chest pain: Qualifiers: Chest pain type: other chest pain Qualified Code(s): R07.89 - Other chest pain Code(s): R07.9 - Chest pain, unspecified Status: Acute Assessment and Plan: Somewhat atypical likely secondary to uncontrolled hypertension, decompensated heart failure. (5) Nonischemic cardiomyopathy: Code(s): I42.8 - Other cardiomyopathies Status: Acute Assessment and Plan: Last EF 42% by echocardiogram 2018. Repeat 2D echocardiogram. Depending on LV function appropriate recommendations for guideline directed medical therapy in this regard. (6) CAD (coronary artery disease): Qualifiers: Coronary Disease-Associated Artery/Lesion type: [place] artery [place] vs. transplanted heart: [place] heart Associated angina: without angina Qualified Code(s): I25.10 - Atherosclerotic heart disease of [place] coronary artery without angina pectoris Code(s): I25.10 - Atherosclerotic heart disease of [place] coronary artery without angina pectoris Status: Acute Assessment and Plan: As above. Aspirin, statin. (7) DM2 (diabetes mellitus, type 2): Qualifiers: Diabetes mellitus manager terminal insulin use: without chcf use Diabetes mellitus complication status: with circulatory complication Diabetes mellitus complication detail: with other circulatory complications Qualified Code(s): E11.59 - Type 2 diabetes mellitus with other circulatory complications Code(s): E11.9 - Type 2 diabetes mellitus without complications Status: Chronic Assessment and Plan: Check hemoglobin A1c. Management per primary service. (8) Noncompliance: Code(s): Z91.19 - Patient's noncompliance with other medical treatment and regimen Status: Acute Assessment and Plan: As above. Must remain compliant with follow-up, medications, and recommendations even if EF remains normal and blood pressure is controlled as he was counseled at his last visit in 2019. (9) Morbid (severe) obesity due to excess calories: Code(s): E66.01 - Morbid (severe) obesity due to excess calories Status: Acute Assessment and Plan: Lifestyle modification, weight loss exercise reduction calori
[2021-10-31 18:11] LABS: Cholesterol 129 mg/dL (0-200); HDL Direct 23 mg/dL; Triglycerides 142 mg/dL (<150)
[2021-10-31 18:23] LABS: LDL Cholesterol Direct 88 mg/dL
--- NOTE | 2021-10-31 18:36 | PC.NURSE ---
Pt given dinner tray po. Denies chest pain or shortness of breath at present time.
--- NOTE | 2021-10-31 19:13 | PC.NURSE ---
Report to ADAIR López, to continue care. Continue to await a bed in IMU.
--- NOTE | 2021-10-31 19:39 | PC.NURSE ---
Assumed care of pt at this time. Pt alert and upright on stretcher, no request at this time.
--- NOTE | 2021-10-31 21:38 | PC.NURSE ---
Called pharmacy to check up on pts ordered medications, spoke with Waldemar who states he will send them up.
[2021-10-31] MEDS: carvediloL 6.25 MG TABLET PO (22:11)
[2021-11-01] VITALS (13 sets, daily range): BP systolic 118–137; BP diastolic 70–97; PULSE 83–107; RESP 16–22; TEMP 36.2–36.8; O2SAT 92–98
--- NOTE | 2021-11-01 00:03 | PC.NURSE ---
This patient, Jamin Field Jr., was admitted to IMU Room 206-01. Patient/family oriented to hospital policies and general routines including ID bracelet, bed and alarms, visiting hours, pain management, procedures, bathroom and other care routines, personal items, smoking policy, room service/diet, and visiting hours. Information on how to activate the Rapid Response Team has been discussed. Patient/Family are encouraged to report perceived risks to care and to ask questions if they do not understand what they are told or what they should do.
[2021-11-01] MEDS: NITROGLYCERIN OINTMENT 1 INCH DOSE TRANSDERM (05:00)
[2021-11-01 05:23] LABS: Basophils Absolute Auto 0.1 K/mm3 (0.0-0.1); Basophils Percent Auto 0.7 % (0.2-1.2); Eosinophils Absolute Auto 0.4 K/mm3 (0-0.3); Hemoglobin 14.7 g/dL (14.0-18.0); Immature Granulocyte Absolute 0.03 K/mm3 (0.00-0.031); Immature Granulocyte Percent A 0.3 % (0-0.5); Lymphocytes Percent Auto 20.5 % (18.3-44.2); Mean Corpuscular Hemoglobin 30.1 pg (26-34); Mean Corpuscular Volume 94.1 fl (80-100); Monocytes Absolute Auto 1.1 K/mm3 (0.1-0.6); Monocytes Percent Auto 9.5 % (2.6-8.5); Neutrophils Absolute Auto 7.7 K/mm3 (1.3-6.7); Platelet Count Result 238 k/mm3 (150-375); Red Blood Count 4.89 M/mm3 (4.6-6.20); Red Cell Distribution Width 13.9 % (11.5-14.5); White Blood Count 11.7 K/mm3 (4.5-10.0)
[2021-11-01 05:44] LABS: Alanine Aminotransferase 67 U/L (4-50); Albumin Level 3.7 g/dL (3.5-5.1); Alkaline Phosphatase 71 U/L (38-126); Anion Gap 4 mmol/L (8-16); Aspartate Amino Transferase 38 U/L (17-59); Bilirubin,Total 1.1 mg/dL (0.2-1.3); Blood Urea Nitrogen 19 mg/dL (9-20); CRP 1.7 mg/dL (<1.0); Calcium 8.5 mg/dL (8.4-10.2); Carbon Dioxide 26 mmol/L (22-30); Chloride 107 mmol/L (98-107); Estimated CRCL calculation 86 ml/min; Estimated Glomerular Filt Rate > 60; Glucose 164 mg/dL (65-110); Lactate Dehydrogenase 586 U/L (313-618); Magnesium 2.2 mg/dL (1.6-2.3); Potassium 4.2 mmol/L (3.4-5.0); Sodium 137 mmol/L (137-145)
[2021-11-01 05:48] LABS: Lactic Acid Reflex 1.1 mmol/L (0.7-2.1)
[2021-11-01 07:15] LABS: Hemoglobin A1C 6.6 % (<5.7)
[2021-11-01 08:25] LABS: Glucose Point of Care 145 mg/dl (65-105)
--- NOTE | 2021-11-01 10:11 | PM.IMPN ---
Progress Note: A&P Assessment and Plan (1) Chest pain: Qualifiers: Chest pain type: other chest pain Qualified Code(s): R07.89 - Other chest pain Code(s): R07.9 - Chest pain, unspecified Status: Acute Assessment and Plan: Troponins and COVID-19 testing negative. Likely related to congestive heart failure as it is resolved with diuresis. (2) Elevated troponin: Code(s): R77.8 - Other specified abnormalities of plasma proteins Status: Acute Assessment and Plan: Clinically due to congestive heart failure. NO ACUTE CORONARY SYNDROME (3) Acute exacerbation of CHF (congestive heart failure): Qualifiers: Heart failure type: systolic Qualified Code(s): I50.23 - Acute on chronic systolic (congestive) heart failure Code(s): I50.9 - Heart failure, unspecified Status: Acute Assessment and Plan: TSH normal Continue IV furosemide Resume lisinopril and carvedilol Repeat echocardiogram Cardiology following (4) DM2 (diabetes mellitus, type 2): Qualifiers: Diabetes mellitus watermelon inspector insulin use: without watermelon inspector use Diabetes mellitus complication status: with circulatory complication Diabetes mellitus complication detail: with other circulatory complications Qualified Code(s): E11.59 - Type 2 diabetes mellitus with other circulatory complications Code(s): E11.9 - Type 2 diabetes mellitus without complications Status: Chronic Assessment and Plan: Accu-Cheks AC and HS. Sliding scale insulin. Blood sugars reviewed 11/01 and control adequate (5) Obstructive sleep apnea: Code(s): G47.33 - Obstructive sleep apnea (adult) (pediatric) Status: Chronic Assessment and Plan: Continue with home CPAP settings. (6) Hyperlipidemia: Qualifiers: Hyperlipidemia type: unspecified Qualified Code(s): E78.5 - Hyperlipidemia, unspecified Code(s): E78.5 - Hyperlipidemia, unspecified Status: Chronic Assessment and Plan: Continue with home medications. However I do not see any home medications listed at this time. (7) Hypertension: Qualifiers: Hypertension type: unspecified Qualified Code(s): I10 - Essential (primary) hypertension Code(s): I10 - Essential (primary) hypertension Status: Chronic Assessment and Plan: Home medications with p.r.n. hydralazine Subjective Date/time seen: 11/01/21 10:11 Interval history: History of cardiomyopathy with EF 20% to years ago. Recently taken off blood pressure and cardiac meds due to normalization of ejection fraction and blood pressure. Noted increased shortness of breath with exertion and while lying down and leg swelling for the past several days associated with some chest discomfort. 11/01 visit. Breathing much better after IV furosemide and diuresis. Tolerating diet. Denied chest pain or shortness of breath. Minimal ankle swelling today. No GI or issues. No abnormal bleeding. Review of Systems Review of Systems: All systems reviewed & are unremarkable except as noted in HPI and below Exam Narrative: HEENT: PERRL, sclerae nonicteric, pharyngeal mucosa pink and intact NECK: No JVD, adenopathy, or thyromegaly CHEST: Clear to auscultation. Normal effort. HEART: NL S1/S2, regular, no murmur ABDOMEN: BS+, soft, nontender, no mass, no bruits EXTREMITIES: Trace pitting edema of ankles NEUROLOGIC: CN intact and symmetric to inspection. MUSCULOSKELETAL: Tone and strength symmetric. PSYCH: Alert. Oriented to person, place, and time. Objective Data Vital Signs Vital Signs: Vital Signs - 24 hr 10/31/21 10:31 10/31/21 11:01 10/31/21 11:15 Temperature Pulse Rate 103 H 103 H 94 Respiratory Rate 21 H 30 H 26 H Blood Pressure 161/104 H 149/101 H Pulse Oximetry 98 97 98 10/31/21 11:32 10/31/21 12:01 10/31/21 13:31 Temperature Pulse Rate 100 95 99 Respiratory Rate 24 H 31 H 26 H Blood
[2021-11-01] MEDS: ASPIRIN 81 MG CHEWABLE TABLET PO (11:02)
[2021-11-01] MEDS: ATORVASTATIN 40 MG TABLET PO (11:02)
[2021-11-01] MEDS: lisinopriL 20 MG TABLET PO (11:03)
[2021-11-01] MEDS: ENOXAPARIN 40 MG/0.4 ML SYRINGE SUB-Q (11:03)
[2021-11-01] MEDS: FUROSEMIDE INJ 40 MG/4 ML VIAL IV PUSH (11:03)
[2021-11-01] MEDS: carvediloL 6.25 MG TABLET PO ×2 (11:03→21:22)
--- NOTE | 2021-11-01 12:24 | PM.PNCARD ---
Progress Note: A&P Assessment and Plan (1) Acute exacerbation of CHF (congestive heart failure): Qualifiers: Heart failure type: systolic Qualified Code(s): I50.23 - Acute on chronic systolic (congestive) heart failure Code(s): I50.9 - Heart failure, unspecified Status: Acute Assessment and Plan: Fairly euvolemic at this time. History of heart failure with reduced ejection fraction. Reassess EF by echo in a.m.. Transition to oral Lasix 40 mg tomorrow morning. Patient presented mildly volume overloaded with a history of nonischemic cardiomyopathy. 2D echocardiogram pending. Will review when completed. Monitor electrolytes, renal function, daily weight, input and output. Low-sodium diet less than 2 g daily. CPAP for AMILCAR. Continue telemetry. (2) Nonischemic cardiomyopathy: Code(s): I42.8 - Other cardiomyopathies Status: Acute Assessment and Plan: Last EF 42% by echocardiogram 2018. Repeat 2D echocardiogram in a.m.. Depending on LV function appropriate recommendations for guideline directed medical therapy in this regard. Counseled the importance of compliance with recommendations, follow-up and lifestyle modifications. Patient verbalized understanding and the significance of noncompliance. Continue carvedilol 6.25 mg twice daily, lisinopril 20 mg daily. If significant LV dysfunction would prefer Entresto over lisinopril, +/_ Spironolactone. Recommendations to follow in this regard after review of echocardiogram. (3) Uncontrolled hypertension: Code(s): I10 - Essential (primary) hypertension Status: Acute Assessment and Plan: Patient reports he was taken off all his medications by his primary physician's office over 1 year ago. He admits he has not been taking his blood pressure. He has missed several appointments in our office per records. Resume carvedilol, lisinopril. BP control fair report. 2D echocardiogram to assess LV size, function LV wall thickness. Compliance with follow-up and medications as well as lifestyle modifications counseling performed. (4) Chest pain: Qualifiers: Chest pain type: other chest pain Qualified Code(s): R07.89 - Other chest pain Code(s): R07.9 - Chest pain, unspecified Status: Acute Assessment and Plan: Resolved, Somewhat atypical likely secondary to uncontrolled hypertension, decompensated heart failure. (5) Elevated troponin: Code(s): R77.8 - Other specified abnormalities of plasma proteins Status: Acute Assessment and Plan: Mild elevation, flat curve consistent with a type 2 infarction not acute coronary syndrome. He has a history of normal coronary anatomy with the exception of a stenosis in an isolated, very small branch off circumflex 2013. Discontinue systemic anticoagulation. Continue aspirin 81 mg daily, LDL 88, goal less than 70. Continue atorvastatin 40 mg daily. (6) CAD (coronary artery disease): Qualifiers: Coronary Disease-Associated Artery/Lesion type: [place] artery [place] vs. transplanted heart: [place] heart Associated angina: without angina Qualified Code(s): I25.10 - Atherosclerotic heart disease of [place] coronary artery without angina pectoris Code(s): I25.10 - Atherosclerotic heart disease of [place] coronary artery without angina pectoris Status: Acute Assessment and Plan: As above. Aspirin, statin. (7) Morbid (severe) obesity due to excess calories: Code(s): E66.01 - Morbid (severe) obesity due to excess calories Status: Acute Assessment and Plan: Lifestyle modification, weight loss exercise reduction caloric intake. Screen for obstructive sleep apnea. (8) DM2 (diabetes mellitus, type 2): Qualifiers: Diabetes mellitus manager terminal insulin use: without halfway use Diabetes mellitus complication status: with circulatory complication Diabetes mellitus complication detail: with other circula
[2021-11-01 13:01] LABS: Glucose Point of Care 117 mg/dl (65-105)
[2021-11-01 17:19] LABS: Glucose Point of Care 138 mg/dl (65-105)
[2021-11-01 20:01] LABS: Glucose Point of Care 180 mg/dl (65-105)
[2021-11-02] VITALS (12 sets, daily range): BP systolic 124–145; BP diastolic 70–96; PULSE 80–96; RESP 18–22; TEMP 36.4–36.9; O2SAT 96–98
[2021-11-02 05:34] LABS: Anion Gap 3 mmol/L (8-16); Blood Urea Nitrogen 19 mg/dL (9-20); Calcium 8.8 mg/dL (8.4-10.2); Carbon Dioxide 28 mmol/L (22-30); Chloride 105 mmol/L (98-107); Estimated CRCL calculation 94 ml/min; Estimated Glomerular Filt Rate > 60; Glucose 127 mg/dL (65-110); Potassium 4.1 mmol/L (3.4-5.0); Sodium 136 mmol/L (137-145)
--- NOTE | 2021-11-02 06:00 | ECHO_ITS ---
Patient Info Name: Jamin Field Age: 45 years : 1975 Gender: Male Ht: 67 in Wt: 282 lbs BSA: 2.53 m2 HR: 90 bpm BP: 140 / 96 mmHg Heart Rhythm: Sinus Rhythm Technical Quality: Fair Exam Date: 11/02/2021 7:44 AM Exam Location: [facility] Patient Status: Inpatient Admit Date: 10/31/2021 Staff Ordering Physician: Viviane Still MD [employer] Unified Communications Engineer: Silvia Verdugo RDCS Attending Provider: Allie Fernandes MD Referring Physician: Tessy KINCAID; Exam Type: CA echo dop color flow w con Study Info Indications - chest pain, elevated troponin Complete two-dimensional, color flow and Doppler transthoracic echocardiogram is performed. Summary 1. Complete two-dimensional, color flow and Doppler transthoracic echocardiogram is performed. 2. Left ventricular chamber dimension is moderately enlarged. 3. Left ventricular systolic function is severely reduced, estimated at 20-25%. 4. Left atrial chamber dimension is moderately enlarged. 5. There is trace mitral valve regurgitation. Left Ventricle Left ventricular chamber dimension is moderately enlarged. Left ventricular systolic function is severely reduced, estimated at 20-25%. The left ventricular diastolic function is normal. Right Ventricle Right ventricular chamber dimension is normal. Left Atria Left atrial chamber dimension is moderately enlarged. Right Atria Right atrial chamber dimension is normal. Aortic Valve The aortic valve is normal. Pulmonic Valve The pulmonic valve is normal. There is trace pulmonic regurgitation. Mitral Valve The mitral valve has normal leaflets. There is trace mitral valve regurgitation. Tricuspid Valve The tricuspid valve leaflets are normal. There is mild tricuspid valve regurgitation. Pericardium/Pleural The pericardium appears normal. Aorta The aortic root size at the sinus of Valsalva is normal. Left Ventricular Outflow Tract Name Value Normal LVOT 2D LVOT Diameter 2.15 cm LVOT Doppler LVOT Peak Gradient 2 mmHg LVOT Mean Gradient 1 mmHg LVOT VTI 8.74 cm LVOT VTI/AV VTI Ratio 0.65 LVOT Stroke Volume 31.62 ml LVOT CO 2.70 l/min LVOT CI 1.07 L/min/m2 Pulmonic Valve Name Value Normal RVOT Doppler RVOT Peak Gradient 1 mmHg PV Doppler PV Peak Gradient 3 mmHg Mitral Valve Name Value Normal MV Doppler
[2021-11-02] MEDS: PERFLUTREN LIPID MICROSPHERES 1.5 ML VIAL DILUTED TO 10 ML TOTAL VOLUME IV PUSH (08:54)
--- NOTE | 2021-11-02 08:54 | IVDEFINITY ---
Prior to administration of IV Definity the patient was educated on the risks and benefits of the imaging enhancing agent including potential adverse side effects. The patient verbalized understanding. Allergies were verified. No exclusion criteria were identified and at least one of the following inclusion criteria were met: 1) physician request, 2) patient technically difficult to image (per the [place] [employer] Echocardi[employer] guidelines of two or more segments not discernable within the apical view), or 3) questionable left ventricular function. ?
--- NOTE | 2021-11-02 09:06 | PM.PNCARD ---
Progress Note: A&P Additional Plan 45-year-old man with: Hypertension, morbid obesity, suspected sleep apnea and prior nonischemic cardiomyopathy. Patient is doing well following resumption of MIAN-inhibitor and carvedilol. I have no problem with discharged today as long as the echocardiogram results are favorable. Will arrange for follow-up in my office for his history of cardiomyopathy in the resumption of medication. The evaluation of suspected sleep apnea will be deferred to the PCP following discharge. Nixon Zee MD [facility] Subjective Date/time seen: Date of service: 11/02/21 09:06 Interval history: Follow-up visit in this 45-year-old gentleman with: History of dilated nonischemic cardiomyopathy a number of years ago which improved dramatically on medical therapy with which was withdrawn subsequently. He presented to the hospital with shortness of breath elevated blood pressure the picture of some CHF. Patient feels fine today. Mian inhibitor and carvedilol have been resumed. Echocardiogram was done this morning the exam obviously has not been read as of the time of this dictation. Possible discharge today was discussed with the patient Exam Narrative: General: Very pleasant morbidly obese male, Well developed, alert and oriented x3. No apparent distress, comfortable, pleasant, and cooperative. Head: atraumatic, normocephalic Eyes: EOM intact, sclerae anicteric, conjunctivae unremarkable Ears/Nose: external inspection of ears and nose were grossly normal Mouth/Throat: oral mucosa pink and moist Neck: supple, normal range of motion, no jugular venous distention or carotid bruits, thyroid nonpalpable, trachea midline. Cardiac: Tachycardic, Regular rate and rhythm, normal S1-S2, no murmurs, clicks, gallops, or rubs. Lungs: Diminished breath sounds diffusely, no rales, wheezes, or rhonchi. Abdomen: Morbidly obese, Soft, nontender, nondistended, positive bowel sounds throughout. No appreciable hepatosplenomegaly, no rebound guarding or rigidity noted. Abdominal aorta nonpalpable, no appreciable bruits. Extremities: Trace bilateral lower extremity edema, no clubbing, and or cyanosis. Extremities warm and well perfused. Skin: Warm and dry without ecchymoses, rashes, and/or petechiae. Musculoskeletal: Muscle strength and tone intact throughout without obvious deformities. Vascular: Carotid upstrokes 2+ bilaterally, radial pulses 2+ bilaterally, dorsalis pedis pulses 2+ bilaterally, posterior tibialis pulses palpable bilaterally. Neurologic: Cranial nerves 2-12 grossly intact, examination grossly nonfocal Pscyhiatric: Mood calm and appropriate. Objective Data Vital Signs Vital Signs: Vital Signs - 24 hr 11/01/21 11:03 11/01/21 16:00 11/01/21 20:00 Temperature 36.8 C Pulse Rate 92 83 92 Respiratory Rate 16 22 H Blood Pressure 118/70 Pulse Oximetry 98 95 11/01/21 20:31 11/01/21 21:22 11/02/21 04:00 Temperature 36.2 C L 36.9 C Pulse Rate 92 99 90 Respiratory Rate 22 H 22 H Blood Pressure 130/81 140/96 H Pulse Oximetry 95 97 Intake/Output Intake/Output: Intake & Output 10/30/21 10/31/21 11/01/21 11/02/21 23:59 23:59 23:59 23:59 Intake Total 200 1260 500 Output Total 2475 1225 550 Balance -2275 35 -50 Meds/Results Medications: Active Medications Generic Name Dose Route Start Last Admin Trade Name Freq PRN Reason Stop Dose Admin Aspirin 81 mg 11/01/21 08:00 11/01/21 11:02 Aspirin 81 Mg Chewable Tablet PO 81 mg DAILY@0800 NHI Administration Atorvastatin Calcium 40 mg 11/01/21 09:00 11/01/21 11:02 Atorvastatin 40 Mg Tablet PO 40 mg DAILY NHI Administration Carvedilol 6.25 mg 10/31/21 21:00 11/01/21 21:22 Carvedilol 6.25 Mg Tablet PO 6.25 mg Q12HR NHI Administration Dextrose 12.5 gm 10/31/21 14:21 Dextrose 50% 25 Gm/50 Ml Syringe IV PUSH PRN PRN Hypoglycemia Colette
[2021-11-02] MEDS: carvediloL 6.25 MG TABLET PO ×2 (09:13→20:19)
[2021-11-02] MEDS: ATORVASTATIN 40 MG TABLET PO (09:13)
[2021-11-02] MEDS: ENOXAPARIN 40 MG/0.4 ML SYRINGE SUB-Q (09:13)
[2021-11-02] MEDS: lisinopriL 20 MG TABLET PO (09:13)
[2021-11-02] MEDS: FUROSEMIDE 40 MG TABLET PO (09:13)
[2021-11-02] MEDS: ASPIRIN 81 MG CHEWABLE TABLET PO (09:14)
[2021-11-02 09:27] LABS: Glucose Point of Care 150 mg/dl (65-105)
[2021-11-02 13:08] LABS: Glucose Point of Care 212 mg/dl (65-105)
[2021-11-02 13:25] LABS: Magnesium 2.2 mg/dL (1.6-2.3)
--- NOTE | 2021-11-02 15:42 | PM.IMPN ---
Progress Note: A&P Assessment and Plan (1) Chest pain: Qualifiers: Chest pain type: other chest pain Qualified Code(s): R07.89 - Other chest pain Code(s): R07.9 - Chest pain, unspecified Status: Acute Assessment and Plan: Troponins elevated to 0.108 but flat. EKG showing borderline R wave progression and borderline T wave changes. COVID was negative. DDimer normal. [facility] in 2012 showing CAD involving very small insignificant branch of the circumflex but no other significant obstructive coronary artery disease of the major epicardial coronary circulation. Suspect CP related to HTN and CHF. Consider ischemic workup as outpatient but will defer to Cardiology. Continue ASA, Coreg and Lipitor. (2) Elevated troponin: Code(s): R77.8 - Other specified abnormalities of plasma proteins Status: Acute Assessment and Plan: [place] related to HTN and CHF and not ACS. As above (3) Acute exacerbation of CHF (congestive heart failure): Qualifiers: Heart failure type: systolic Qualified Code(s): I50.23 - Acute on chronic systolic (congestive) heart failure Code(s): I50.9 - Heart failure, unspecified Status: Acute Assessment and Plan: EF 40-45% in 2012 by [facility]. Echo in 2017 showing EF 20% treated with appropriate medications and Lifevest. Echo in February 2020 showing recovery with EF 65-70% and grade I diastolic dysfunction. He came of his medications about 1 year ago by his physician since patient was doing well. Patient presents with SOB and CP. TSH normal. CXR showing atelectasis i the lower lobes adn BNP was 3000. Treated with IV furosemide but now changed to oral Lasix. We restarted lisinopril and carvedilol. Repeat echo again showing EF 20-25%. Cardiology following. He is having runs of NSVT so LifeVest being arranged. Mag and potassium okay. Contineu on tele (4) DM2 (diabetes mellitus, type 2): Qualifiers: Diabetes mellitus complication detail: with other circulatory complications Diabetes mellitus complication status: with circulatory complication Diabetes mellitus correction insulin use: without hydrometeorology teacher use Qualified Code(s): E11.59 - Type 2 diabetes mellitus with other circulatory complications Code(s): E11.9 - Type 2 diabetes mellitus without complications Status: Chronic Assessment and Plan: A1c 6.6. The patient's blood glucose was reviewed on 11/02 Glucose remains poorly controlled. Continue AccuCheks covering with sliding scale. Hypoglycemia protocol available as needed. Add metformin at discharge. (5) Obstructive sleep apnea: Code(s): G47.33 - Obstructive sleep apnea (adult) (pediatric) Status: Chronic Assessment and Plan: Patient denies he has AMILCAR and has never had a sleep study and does not wear NIV at home. Continue with CPAP at current settings as toerlated. Check apnea link (6) Hyperlipidemia: Qualifiers: Hyperlipidemia type: unspecified Qualified Code(s): E78.5 - Hyperlipidemia, unspecified Code(s): E78.5 - Hyperlipidemia, unspecified Status: Chronic Assessment and Plan: TG 142, TC 129, LDL 88, HDL 23. LFTs normal except isolated ALT. Lipitor resumed. Check Hepatitis C Ab. (7) Hypertension: Qualifiers: Hypertension type: unspecified Qualified Code(s): I10 - Essential (primary) hypertension Code(s): I10 - Essential (primary) hypertension Status: Chronic Assessment and Plan: Patient's blood pressure was reviewed on 11/02 Blood pressure remains better controlled. Will continue current medications. (8) DVT prophylaxis: Code(s): Z29.9 - Encounter for prophylactic measures, unspecified Status: Acute Assessment and Plan: Lovenox Subjective Date/time seen: 11/02/21 15:42 Interval history: 45yo male with hx of dilated nonischemic cardiomyopathy a number of years ago which improved dramatically
[2021-11-02 17:03] LABS: Glucose Point of Care 144 mg/dl (65-105)
[2021-11-02 20:55] LABS: Glucose Point of Care 172 mg/dl (65-105)
[2021-11-03] VITALS (10 sets, daily range): BP systolic 112–125; BP diastolic 70–86; PULSE 82–93; RESP 16–22; TEMP 36.7–37; O2SAT 96–98
[2021-11-03 06:11] LABS: Anion Gap 6 mmol/L (8-16); Blood Urea Nitrogen 19 mg/dL (9-20); Calcium 8.9 mg/dL (8.4-10.2); Carbon Dioxide 26 mmol/L (22-30); Chloride 106 mmol/L (98-107); Estimated CRCL calculation 94 ml/min; Estimated Glomerular Filt Rate > 60; Glucose 94 mg/dL (65-110); Potassium 4.2 mmol/L (3.4-5.0); Sodium 138 mmol/L (137-145)
[2021-11-03 06:54] LABS: Hepatitis C Virus Antibody Negative (Negative)
[2021-11-03 09:04] LABS: Glucose Point of Care 118 mg/dl (65-105)
[2021-11-03] MEDS: ATORVASTATIN 40 MG TABLET PO (09:09)
[2021-11-03] MEDS: carvediloL 6.25 MG TABLET PO (09:09)
[2021-11-03] MEDS: lisinopriL 20 MG TABLET PO (09:09)
[2021-11-03] MEDS: FUROSEMIDE 40 MG TABLET PO (09:09)
[2021-11-03] MEDS: SPIRONOLACTONE 25 MG TABLET PO (09:10)
[2021-11-03] MEDS: ENOXAPARIN 40 MG/0.4 ML SYRINGE SUB-Q (09:10)
[2021-11-03] MEDS: ASPIRIN 81 MG CHEWABLE TABLET PO (09:15)
--- NOTE | 2021-11-03 11:09 | PM.PNCARD ---
Progress Note: A&P Assessment and Plan (1) Acute exacerbation of CHF (congestive heart failure): Qualifiers: Heart failure type: systolic Qualified Code(s): I50.23 - Acute on chronic systolic (congestive) heart failure Code(s): I50.9 - Heart failure, unspecified Status: Acute Assessment and Plan: LVEF 20-25% Optimal, tolerable, guideline directed medical treatment for CHF with reduced ejection fraction. Patient is currently on carvedilol, lisinopril, spironolactone. Consider switching lisinopril to sacubitril/valsartan as an outpatient. Consider adding SGLT2 inhibitor as an outpatient. Maintenance diuresis with furosemide 40 mg p.o. daily. Patient to be discharged on external wearable defibrillator-life vest. He will follow-up with Dr. Zee in the outpatient cardiology clinic. (2) Nonischemic cardiomyopathy: Code(s): I42.8 - Other cardiomyopathies Status: Acute Assessment and Plan: Optimal, tolerable medical treatment as described above (3) Uncontrolled hypertension: Code(s): I10 - Essential (primary) hypertension Status: Acute Assessment and Plan: Patient reports he was taken off all his medications by his primary physician's office over 1 year ago. He admits he has not been taking his blood pressure. He has missed several appointments in our office per records. Optimal antihypertensives as described above. Low-salt diet, Compliance with follow-up and medications as well as lifestyle modifications counseling performed. (4) Chest pain: Qualifiers: Chest pain type: other chest pain Qualified Code(s): R07.89 - Other chest pain Code(s): R07.9 - Chest pain, unspecified Status: Acute Assessment and Plan: Resolved, Somewhat atypical likely secondary to uncontrolled hypertension, decompensated heart failure. (5) Elevated troponin: Code(s): R77.8 - Other specified abnormalities of plasma proteins Status: Acute Assessment and Plan: Mild elevation, flat curve consistent with a type 2 infarction not acute coronary syndrome. He has a history of normal coronary anatomy with the exception of a stenosis in an isolated, very small branch off circumflex 2013. Continue low-dose aspirin and statin (6) CAD (coronary artery disease): Qualifiers: Coronary Disease-Associated Artery/Lesion type: chilkat artery [place] vs. transplanted heart: chilkat heart Associated angina: without angina Qualified Code(s): I25.10 - Atherosclerotic heart disease of chilkat coronary artery without angina pectoris Code(s): I25.10 - Atherosclerotic heart disease of chilkat coronary artery without angina pectoris Status: Acute Assessment and Plan: As above. Aspirin, statin. (7) Morbid (severe) obesity due to excess calories: Code(s): E66.01 - Morbid (severe) obesity due to excess calories Status: Acute Assessment and Plan: Lifestyle modification, weight loss exercise reduction caloric intake. Screen for obstructive sleep apnea. (8) DM2 (diabetes mellitus, type 2): Qualifiers: Diabetes mellitus skilled nursing insulin use: without skilled nursing use Diabetes mellitus complication status: with circulatory complication Diabetes mellitus complication detail: with other circulatory complications Qualified Code(s): E11.59 - Type 2 diabetes mellitus with other circulatory complications Code(s): E11.9 - Type 2 diabetes mellitus without complications Status: Chronic Assessment and Plan: hemoglobin A1c elevated at 6.6 suggestive of diabetes mellitus. Management per primary service. (9) Noncompliance: Code(s): Z91.19 - Patient's noncompliance with other medical treatment and regimen Status: Acute Assessment and Plan: Patient advised to be compliant with medical treatment and outpatient follow-up. Subjective Date/time seen: 11/03/21 11:09 Interval histor
--- NOTE | 2021-11-03 11:30 | PM.DS ---
DS: Admitting Diagnosis Discharge Date 11/03/21 Admitting Diagnosis Chest pain DS: Discharge Diagnosis Discharge Diagnosis (1) Chest pain: Qualifiers: Chest pain type: other chest pain Qualified Code(s): R07.89 - Other chest pain Code(s): R07.9 - Chest pain, unspecified Status: Acute Assessment and Plan: Troponins elevated to 0.108 but flat. EKG showing borderline R wave progression and borderline T wave changes. COVID was negative. DDimer normal. [facility] in 2013 showing CAD involving very small insignificant branch of the circumflex but no other significant obstructive coronary artery disease of the major epicardial coronary circulation. Suspect CP related to HTN and CHF. Treated with ASA, Coreg and Lipitor. (2) Elevated troponin: Code(s): R77.8 - Other specified abnormalities of plasma proteins Status: Acute Assessment and Plan: [place] related to HTN and CHF and not ACS. As above (3) Acute exacerbation of CHF (congestive heart failure): Qualifiers: Heart failure type: systolic Qualified Code(s): I50.23 - Acute on chronic systolic (congestive) heart failure Code(s): I50.9 - Heart failure, unspecified Status: Acute Assessment and Plan: EF 40-45% in 2013 by [facility]. Echo in 2017 showing EF 20% treated with appropriate medications and Lifevest. Echo in February 2020 showing recovery with EF 65-70% and grade I diastolic dysfunction. He came off his medications about 1 year ago by his physician since patient was doing well. Patient presents with SOB and CP. TSH normal. CXR showing atelectasis in the lower lobes and BNP was 3000. Treated with IV furosemide then changed to oral Lasix. We restarted lisinopril and carvedilol; also started on Aldactone. Repeat echo again showing EF 20-25%. Cardiology followed along and appreciate their input. He was having runs of NSVT so LifeVest was arranged. 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 The patient's blood glucose was monitored closely with AccuCheks covering with sliding scale. Hypoglycemia protocol available as needed. Add metformin at discharge. (5) Obstructive sleep apnea: Code(s): G47.33 - Obstructive sleep apnea (adult) (pediatric) Status: Chronic Assessment and Plan: Patient denies he has AMILCAR and has never had a sleep study and does not wear NIV at home. Apnea link showing AHI 19.7 and RI 21.3 on room air. (6) Hyperlipidemia: Qualifiers: Hyperlipidemia type: unspecified Qualified Code(s): E78.5 - Hyperlipidemia, unspecified Code(s): E78.5 - Hyperlipidemia, unspecified Status: Chronic Assessment and Plan: TG 142, TC 129, LDL 88, HDL 23. LFTs normal except isolated ALT. Hepatitis C Ab negative. Lipitor resumed. (7) Hypertension: Qualifiers: Hypertension type: unspecified Qualified Code(s): I10 - Essential (primary) hypertension Code(s): I10 - Essential (primary) hypertension Status: Chronic Assessment and Plan: Patient's blood pressure was elevated on admission but better controlled with resuming his previous medical regiment. DS: Summary Hospital Course Reason for hospitalization: 45yo male with hx of dilated nonischemic cardiomyopathy a number of years ago which improved dramatically on medical therapy with which was withdrawn subsequently here for SOB. Please see H&P for details Hospital Course: Please see above for details of hospital course Status
== END 2021-11-03 12:40 | disposition home or self-care (01) ==
LOC: ANHED 11:14 → ANHIMU 18:02
PROVIDERS: Emergency Medicine; Internal Medicine; Internal Medicine Cardiovascular Disease; Nurse Practitioner; Admitting Provider Hospitalist; Emergency Provider General Practice; PCP Nurse Practitioner Adult Health; Visit Provider Internal Medicine
DX: R07.9 Chest pain, unspecified (principal); I11.0 Hypertensive heart disease with heart failure; I50.23 Acute on chronic systolic (congestive) heart failure; I42.8 Other cardiomyopathies; R77.8 Other specified abnormalities of plasma proteins; R06.02 Shortness of breath; E11.9 Type 2 diabetes mellitus without complications; G47.33 Obstructive sleep apnea (adult) (pediatric); E78.5 Hyperlipidemia, unspecified; Z20.822 Contact with and (suspected) exposure to COVID-19; I25.10 Atherosclerotic heart disease of native coronary artery without angina pectoris; Z91.19 Patient's noncompliance with other medical treatment and regimen; E66.01 Morbid (severe) obesity due to excess calories; Z68.42 Body mass index [BMI] 45.0-49.9, adult
CPT/HCPCS: 36415; 71046; 80048; 80053; 80061; 80307; 82728; 82948; 83036; 83605; 83615; 83690; 83735; 83880; 84443; 84484; 85025; 85380; 85610; 85730; 86140; 86803; 93005; 94660; 94762; 96365; 96372; 96374; 96375; 99285; A9270; C8929; C9803; G0378; J0131; J0360; J1650; J1940; Q9957; U0003; U0005

== ENCOUNTER 2024-03-06 17:22 | Emergency (ER) | payer BC, SELFPAY ==
[2024-03-06] VITALS (16 sets, daily range): BP systolic 114–190; BP diastolic 81–135; PULSE 82–105; RESP 16–26; TEMP 36.7; O2SAT 89–98
--- NOTE | 2024-03-06 17:52 | ECG_ITS ---
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 Measurements Intervals [place] Rate: 103 P: 16 VT: 146 QRS: -10 QRSD: 97 T: 42 QT: 344 QTc: 452 Interpretive Statements SINUS TACHYCARDIA NONSPECIFIC T-WAVE ABNORMALITY OLD INFERIOR INFARCTION No previous ECG available for comparison Electronically Signed On 03-07-2024 13:54:17 CDT by Oskar Grimes M.D.
--- NOTE | 2024-03-06 18:03 | PC.NURSE ---
pt reports PMH of CHF. Reports he does not feel like this is cardiac in nature and denies any dyspnea or edema.
[2024-03-06 18:09] LABS: Basophils Absolute Auto 0.1 K/mm3 (0.0-0.1); Basophils Percent Auto 0.7 % (0.2-1.2); Eosinophils Absolute Auto 0.2 K/mm3 (0-0.3); Eosinophils Percent Auto 2.3 % (0-4.4); Hematocrit 50.3 % (42.0-52.0); Hemoglobin 17.3 g/dL (14.0-18.0); Immature Granulocyte Absolute 0.03 K/mm3 (0.00-0.031); Immature Granulocyte Percent A 0.3 % (0-0.5); Lymphocytes Absolute Auto 3.31 K/mm3 (0.9-3.2); Lymphocytes Percent Auto 36.8 % (18.3-44.2); Mean Corpuscular HGB Conc 34.4 g/dl (32-36); Mean Corpuscular Hemoglobin 31.1 pg (26-34); Mean Corpuscular Volume 90.3 fl (80-100); Mean Platelet Volume 11.2 fl (7.4-10.4); Monocytes Absolute Auto 0.7 K/mm3 (0.1-0.6); Monocytes Percent Auto 7.9 % (2.6-8.5); Neutrophils Absolute Auto 4.7 K/mm3 (1.3-6.7); Platelet Count Result 211 k/mm3 (150-375); Red Blood Count 5.57 M/mm3 (4.6-6.20); Red Cell Distribution Width 13.2 % (11.5-14.5)
--- NOTE | 2024-03-06 18:22 | ED.HA ---
HPI - Headache General Chief Complaint: Headache Stated Complaint: migraine Time Seen by Provider: 03/06/24 17:48 Source: patient Mode of arrival: ambulatory Limitations: no limitations History of Present Illness HPI Narrative: Patient is a 48-year-old male who presents the ED with report of a migraine headache. Patient reports having a migraine since Tuesday night/Tuesday morning. He complains of pain throughout his right-sided head. States it has been progressing into his right-sided neck and shoulder. He took 3 Excedrin the 1st day of onset, but has otherwise not take anything further for pain. He does report history of migraines in the past which felt similar. Reports nausea, denies vomiting, vision changes, dizziness, lightheadedness, fevers, photophobia, phonophobia. Related Data Allergies Allergy/AdvReac Type Severity Reaction Status Date / Time No Known Allergies Allergy Verified 02/13/20 15:42 Review of Systems Review of Systems: CONSTITUTIONAL: Denies fever, chills, or sweats. ENT: Denies vision changes. GASTROINTESTINAL: See HPI. MUSCULOSKELETAL: See HPI. NEUROLOGIC: See HPI. All systems reviewed & are unremarkable except as noted in HPI and below PMFSH Past Medical History Medical History Cellulitis of scrotum CHF (congestive heart failure) had a life vest DM2 (diabetes mellitus, type 2) History of diverticulitis Hyperlipidemia Hypertension Obstructive sleep apnea Right foot injury Surgical History Surgical History History of cardiac catheterization History of decompression of ulnar nerve History of orthopedic surgery pin to right foot History of tonsillectomy S/P ORIF (open reduction internal fixation) fracture Right foot Family History Family History Father Acute myocardial infarction Diabetes mellitus Hypertension Colon cancer Mother Chronic obstructive pulmonary disease Social History Social History Social History: Patient lives with his Asiya. She is a durable power adult manager for healthcare. The patient desires to be a full code. The patient stated that he never smoked. Does not use any marijuana or illicit drugs. 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 From his previous admission it was noted that the patient does chew and swallow tobacco. Code status full code Smoking status: Never smoker Smokeless tobacco user: chewing tobacco Second hand tobacco smoke exposure: No Alcohol intake: never Substance use: never Living arrangements: with family Occupation/Education: occupation Gender identity (if verbalized by the patient): Male Spiritual care concerns: No Exam Narrative: GENERAL: Well appearing, Morbidly obese with BMI of 47.1, non-toxic, in no acute distress. HEAD: Normocephalic, atraumatic. EYES: PERRL/EOMI, conjunctiva clear. No nystagmus. NECK: Tenderness to palpation throughout right lower paraspinal musculature extending into trapezius region. No midline cervical spinal tenderness. No meningeal signs. RESPIRATORY: Airway patent, respirations nonlabored. Clear to auscultation bilaterally, no rales, rhonchi, wheezing. CARDIOVASCULAR: Regular rate and rhythm without murmurs, rubs, or gallops. MUSCULOSKELETAL: Moves all extremities. No gross deformities. SKIN: Warm, dry, normal color. NEURO: A&O X3. Speech clear. Cranial nerves II-XII grossly intact. Steady gait. No ataxic movements. No focal deficits. PSYCHIATRIC: Appropriate mood and affect. Normal interaction. Course Vital Signs Vital signs: Vital Signs Temperature 98.0 F 03/06/24 17:34 Pulse Rate 102 H 03/06/24 17:34 Respiratory Rate 16 03/06/24 17:34 Blood Pressure 147/99 H 03/06/24 17:34 Pulse Oximetry
[2024-03-06 18:37] LABS: Alanine Aminotransferase 35 U/L (6-50); Alkaline Phosphatase 97 U/L (38-126); Anion Gap 6 mmol/L (4-12); Aspartate Amino Transferase 32 U/L (17-59); Bilirubin,Total 0.7 mg/dL (0.2-1.3); Blood Urea Nitrogen 14 mg/dL (9-20); Calcium 9.2 mg/dL (8.4-10.2); Carbon Dioxide 26 mmol/L (22-30); Chloride 106 mmol/L (98-107); Estimated CRCL calculation 110 ml/min; Estimated Glomerular Filt Rate > 60; Glucose 233 mg/dL (65-110); Potassium 4.1 mmol/L (3.4-5.0); Sodium 138 mmol/L (137-145)
[2024-03-06] MEDS: ACETAMINOPHEN 500 MG TABLET 1000 MG PO (18:47)
[2024-03-06] MEDS: SODIUM CHLORIDE 0.9% IV 1,000 ML 999 ML IV CONT (18:48)
[2024-03-06] MEDS: diphenhydrAMINE HCl INJ 50 MG/ML VIAL 25 MG IV PUSH (18:49)
[2024-03-06] MEDS: KETOROLAC 30 MG/ML VIAL (*BKC) IV PUSH (18:50)
[2024-03-06] MEDS: dexAMETHasone SOD PHOS INJ 10 MG/ML 1 ML VIAL IV PUSH (18:52)
[2024-03-06] MEDS: METOCLOPRAMIDE HCL INJ 10 MG/2 ML VIAL IV PUSH (18:52)
[2024-03-06] MEDS: carvediloL 12.5 MG TABLET PO (20:19)
== END 2024-03-06 20:32 | disposition home or self-care (01) ==
PROVIDERS: Student in an Organized Health Care Education/Training Program; Emergency Provider Physician Assistant; PCP Nurse Practitioner Adult Health
DX: G43.909 Migraine, unspecified, not intractable, without status migrainosus (principal); R73.9 Hyperglycemia, unspecified; I11.0 Hypertensive heart disease with heart failure; T44.7X6A Underdosing of beta-adrenoreceptor antagonists, initial encounter; R73.03 Prediabetes; I50.9 Heart failure, unspecified; E78.5 Hyperlipidemia, unspecified; G47.33 Obstructive sleep apnea (adult) (pediatric); F17.220 Nicotine dependence, chewing tobacco, uncomplicated
CPT/HCPCS: 36415; 80053; 85025; 93005; 96361; 96374; 96375; 99284; A9270; J1100; J1200; J1885; J2765; J7030